=== PATIENT | female | born 1950 | race Hispanic/Latino ===

== ENCOUNTER → 2017-10-12 | Outpatient (CLI) | payer MEDICARE ==
--- NOTE | 2017-10-12 11:07 | Diagnostic Imaging Report ---
PROCEDURE:X-RAY RIGHT SHOULDER, COMPLETE COMPARISON:None. INDICATIONS:PAIN FINDINGS: 2 views of the right shoulder (AP internal and external rotation) BONES: Normal mineralization. No acute fracture or dislocation. Mild degenerative changes at the acromioclavicular joint. Internal and external rotation are adequate. SOFT TISSUES:Negative. OTHER:Negative. CONCLUSION: No acute radiographic abnormality of the right shoulder. Dictated by: Avelino Barber M.D. on 10/12/2017 at 11:16 Electronically approved by: Avelino Barber M.D. on 10/12/2017 at 11:16
== END ==
LOC: RAD 10:32
PROVIDERS: ATTEND Family Medicine
DX: M25.511 Pain in right shoulder (principal)

== ENCOUNTER → 2017-11-04 | Outpatient (RCR) | payer MEDICARE | LOC: PT 13:34 | PROVIDERS: ATTEND Specialist | DX: M75.41 Impingement syndrome of right shoulder (principal) | CPT/HCPCS: 97110; 97161; G8984; G8985 ==

== ENCOUNTER 2017-11-13 13:00 | Outpatient (RCR) | payer MEDICARE | END 2017-12-05 | LOC: PT 13:00 | PROVIDERS: ATTEND Specialist | DX: M75.41 Impingement syndrome of right shoulder (principal); M25.511 Pain in right shoulder; M25.611 Stiffness of right shoulder, not elsewhere classified; M62.81 Muscle weakness (generalized) ==

== ENCOUNTER 2018-11-08 09:26 | Inpatient (IN) | payer MEDICARE ==
[~2018-11-08] VITALS: Ht 165.1 cm; Wt 73.0 kg
--- OUTSIDE RECORDS SUMMARY | 2018-11-08 09:29 | XMS REPORT | Continuity of Care Document ---
Author Author [facility] Interface Address Unknown Phone Unavailable Problems Problem Status Onset Date Classification Date Reported Comments Source DIABETIC WITH LEG PAIN Active 06/01/2017 [facility] Medications Medication Details Route Status Patient Instructions Ordering Provider Order Date Source Allergies, Adverse Reactions, Alerts Substance Category Reaction Severity Reaction type Status Date Reported Comments Source Immunizations Immunization Date Given Site Status Last Updated Comments Source Results Order Name Results Value Reference Range Date Interpretation Comments Source Ext Lower Venous Doppler Bilat US Ext Lower Venous Doppler Bilat US Patient Name: SVETLANA MARTINEZ : 1950; Age: 66 years Female MR: [id number] Study: Ext Lower Venous Doppler Bilat US 06/09/2017 2:30 PM CDT CLINICAL INDICATION: - Bilateral leg Pain. Diabetes, COMPARISON: None TECHNIQUE: Sonographic evaluation of the bilateral lower extremity veins was performed using high resolution B-mode imaging, along with pulse and color Doppler imaging. FINDINGS: Right lower extremity: The common femoral vein, femoral vein, popliteal vein and visualized posterior tibial/calf veins are patent and compressible. The saphenofemoral junction and visualized greater saphenous vein are patent and compressible. Left lower extremity: The common femoral vein, superficial femoral vein, popliteal vein and visualized posterior tibial/calf veins are patent and compressible The saphenofemoral junction and visualized greater saphenous vein are patent and compressible. Anechoic 4.6 cm Goddard's cyst within the left popliteal fossa. IMPRESSION: No evidence of deep venous thrombosis within the bilateral lower extremities. SL: [id number] 06/09/2017 - - Read by: Joselin Polo MD Dictated Date/time: 06/09/17 15:47 Electronically Signed by: Joselin Polo MD 06/09/17 15:48 FINAL REPORT [facility] Ext Lower Arterial bilat w pressure US Ext Lower Arterial bilat w pressure US Please refer to heartlab report, located under Vascular in Care4. 06/09/2017 - - Electronically Signed by: Francisco Javier Renae 06/12/17 19:44 FINAL REPORT [facility] Breast Mammo Scrn MATT incl CAD MA Breast Mammo Scrn MATT incl CAD MA BILATERAL DIGITAL SCREENING MAMMOGRAM WITH CAD: 06/02/2017 CLINICAL: Routine/Screening. Current study was evaluated with a Computer Aided Detection (CAD) system. COMPARISON:No prior exams were available for comparison. TECHNIQUE: Mammographic views were obtained using digital acquisition. Current study was also evaluated with a Computer Aided Detection (CAD) system. The tissue of both breasts is heterogeneously dense, which could obscure detection of small masses. FINDINGS: There are benign calcifications in both breasts. No significant masses, calcifications, or other findings are seen in either breast. IMPRESSION: BENIGN RECOMMENDATION:There is no mammographic evidence of malignancy. A 1 year screening mammogram is recommended.(06/03/2018) This exam was interpreted at [id number] for JW Ordonez. Pat Flor M.D. ms/penrad:06/17/2017 10:10:26 Tourist Cabin Keeper(s): RT Bang(R)(M), [facility] letter sent: BI-RADS 1/2 Dense Mammogram BI-RADS: 2 Benign 06/02/2017 - - Read by: Pat Flor MD Dictated Date/time: 06/17/17 10:10 Electronically Signed by: Pat Flor MD 06/17/17 10:10 FINAL REPORT JW MAYOTri [facility] Bone Density [employer] MA Bone Density [employer] MA - Bone Density [employer] MA BONE DENSITY EVALUATION: 06/02/2017 CLINICAL DATA: Post menopausal. Screening for osteoporosis. RISK FACTORS: . FINDINGS: Bone density evaluation was performed 06/02/2017 on the AP L1-L4 region of spine using a Hologic unit. The BMD average for the exam is 0.875 g/cm2. The T-score is -1.60 and the Z-score is 0.20. This matches the World Health Organization's criteria for osteopenia and places the patient at a medium risk for fracture. An additional bone density evaluation was performed 06/02/2017 on the right femur neck using a Hologic unit. The BMD average for the exam is 0.570 g/cm2. The T-score is -2.50 and the Z-score is -1.10. This matches the World Health Organization's criteria for osteoporosis and places the patient at a high risk for fracture. An additional bone density evaluation was performed 06/02/2017 on the right hip using an [employer] unit. The BMD average for the exam is 0.696 g/cm2. The T-score is -2.00 and the Z-score is -0.80. This matches the World Health Organization's criteria for osteopenia and places the patient at a medium risk for fracture. An additional bone density evaluation was performed 06/02/2017 on the left femur neck using a Hologic unit. The BMD average for the exam is 0.545 g/cm2. The T- score is -2.70 and the Z-score is -1.30. This matches the World Health Organization's criteria for osteoporosis and places the patient at a high risk for fracture. An additional bone density evaluation was performed 06/02/2017 on the left hip using a Hologic unit. The BMD average for the exam is 0.698 g/cm2. The T-score is -2.00 and the Z-score is -0.80. This matches the World Health Organization's criteria for osteopenia and places the patient at a medium risk for fracture. IMPRESSION: OSTEOPOROSIS Patient is at high risk for fracture. Professional services are provided by the [facility]. This exam was dictated and interpreted by [id number] for JW Olvera M.D. cm/penrad:06/03/2017 08:23:19 Tourist Cabin Keeper: Ruth CASH(Nomi)(Marcial), [facility] 06/02/2017 - - Read by: David Colon MD Dictated Date/time: 06/03/17 08:23 Electronically Signed by: David Colon MD 06/03/17 08:23 FINAL REPORT JW Ordonez Vital Signs Vital Sign Value Date Comments Source Encounters Location Location Details Encounter Type Encounter Number Reason For Visit Attending Provider ADM Date DC Date Status Source [facility] [id number] Ayad Shah 06/02/2017 06/03/2017 JW Ordonez [facility] Outpatient [id number] Ayad Shah 06/09/2017 06/10/2017 [facility] Procedures Procedure Code Date Perfomer Comments Source
--- OUTSIDE RECORDS SUMMARY | 2018-11-08 09:29 | XMS REPORT | Summary of Care ---
Author Author [facility] Organization [facility] Address Unknown Phone Unavailable Encounter HQ Encntr_alias(FIN) [id number] Date(s): 06/02/17 - 06/02/17 [facility] [address] [place] [address]- [phone] Discharge Disposition: Home or Self Care Attending Physician: Ayad Shah MD Vital Signs No data available for this section Problem List No data available for this section Allergies, Adverse Reactions, Alerts No data available for this section Medications No data available for this section Results No data available for this section Immunizations No data available for this section Procedures No data available for this section Social History No data available for this section Assessment and Plan No data available for this section
--- OUTSIDE RECORDS SUMMARY | 2018-11-08 09:29 | XMS REPORT | Summary of Care ---
Author Author [facility] Organization [facility] Address Unknown Phone Unavailable Encounter HQ Encntr_alias(FIN) [id number] Date(s): 06/09/17 - 06/09/17 [facility] [address] [place] [address]- [phone] Discharge Disposition: Home or Self Care Attending Physician: Ayad Shah MD Referring Physician: Ayad Shah MD Vital Signs No [...]
--- OUTSIDE RECORDS SUMMARY | 2018-11-08 09:30 | XMS REPORT ---
Author [facility] Address Unknown Phone Unavailable Care Team Providers Care Machine Setter Automatic Name Role Phone GREER MCDERMOTT Unavailable Unavailable Payers Payer Name Policy Type Policy Number Effective Date Expiration Date Problems This patient has no known problems. Allergies, Adverse Reactions, Alerts Allergy Name Allergy Type Status Severity Reaction(s) Onset Date Inactive Date Treating Clinician Comments No Known Allergies DA Active U 2018-09-23 00:00:00 Medications This patient has no known medications. Results Test Description Test Time Test Comments Text Results Atomic Results Result Comments UA RFLX MICR CULT IF INDICATED 2018-10-12 17:08:00 UA COLOR (test code=COLU) STONEY YELLOW UA APPEARANCE (test code=APPU) TURBID CLEAR UA GLUCOSE DIPSTICK (test code=DGLUU) NEGATIVE NEG UA BILIRUBIN DIPSTICK (test code=BILU) NEGATIVE NEG UA KETONE DIPSTICK (test code=KETU) 1+ NEG UA SPECIFIC GRAVITY (test code=SGU) 1.014 1.001-1.035 UA BLOOD DIPSTICK (test code=SANTY) NEG NEG UA PH DIPSTICK (test code=ALTON) 5.0 5-9 UA PROTEIN DIPSTICK (test code=PROU) 2+ NEG UA UROBILINIOGEN DIPSTICK (test code=URO) NEGATIVE mg/dL NEG UA NITRITE DIPSTICK (test code=RAYMUNDO) NEG NEG UA LEUKOCYTE ESTERASE DIPSTICK (test code=LEUU) 3+ NEG UA WBC (test code=WBCU) TOO NUMEROUS TO CNT #/hpf NONE SEEN UA RBC (test code=RBCU) 0-2 #/hpf NONE SEEN UA EPITHELIAL CELLS (test code=EPIU) MODERATE #/HPF RARE-FEW UA BACTERIA (test code=BACU) MANY #/hpf NONE SEEN UA RFLX MICR CULT IF [id number] 16:49:00* Test Item Value Reference Range Comments UA COLOR (test code=COLU) STONEY YELLOW UA APPEARANCE (test code=APPU) TURBID CLEAR UA GLUCOSE DIPSTICK (test code=DGLUU) NEGATIVE NEG UA BILIRUBIN DIPSTICK (test code=BILU) NEGATIVE NEG UA KETONE DIPSTICK (test code=KETU) 1+ NEG UA SPECIFIC GRAVITY (test code=SGU) 1.014 1.001-1.035 UA BLOOD DIPSTICK (test code=SANTY) NEG NEG UA PH DIPSTICK (test code=ALTON) 5.0 5-9 UA PROTEIN DIPSTICK (test code=PROU) 2+ NEG UA UROBILINIOGEN DIPSTICK (test code=URO) NEGATIVE mg/dL NEG UA NITRITE DIPSTICK (test code=RAYMUNDO) NEG NEG UA LEUKOCYTE ESTERASE DIPSTICK (test code=LEUU) 3+ NEG UA WBC (test code=WBCU) #/hpf NONE SEEN UA RBC (test code=RBCU) #/hpf NONE SEEN UA EPITHELIAL CELLS (test code=EPIU) #/HPF RARE-FEW UA HYALINE CAST (test code=HYALU) #/hpf UA MUCUS (test code=MUCU) NONE SEEN UA YEAST (test code=YEASTU) #/hpf NONE SEEN COMPREHENSIVE METABOLIC [id number] 15:57:00* Test Item Value Reference Range Comments SODIUM (test code=NA) 136 mEq/L 135-145 POTASSIUM (test code=K) 3.3 mEq/L 3.5-5.0 CHLORIDE (test code=CL) 101 mEq/L 100-115 CARBON DIOXIDE (test code=CO2) 25 mEq/L 22-31 ANION GAP (test code=GAP) 13.30 10-20 GLUCOSE (test code=GLU) 186 mg/dL 65-110 BLOOD UREA NITROGEN (test code=BUN) 3 mg/dL 7-18 GLOMERULAR FILTRATION RATE (test code=GFR) 84 ml/min >60 CREATININE (test code=CREAT) 0.7 mg/dL 0.5-1.0 TOTAL PROTEIN (test code=PROT) 6.2 gm/dL 6.3-8.2 ALBUMIN (test code=ALB) 2.1 gm/dL 3.4-4.8 CALCIUM (test code=CA) 8.2 mg/dL 8.4-10.2 BILIRUBIN TOTAL (test code=BILT) 0.5 mg/dL 0.2-1.0 SGOT/AST (test code=AST) 90 units/L 15-37 SGPT/ALT (test code=ALT) 24 units/L 12-78 ALKALINE PHOSPHATASE TOTAL (test code=ALKP) 118 units/L 46-116 [id number] 15:57:00* Test Item Value Reference Range Comments LIPASE (test code=LIP) 46 units/L 73-393 CBC W/AUTO [id number] 15:23:00* Test Item Value Reference Range Comments WHITE BLOOD CELL (test code=WBC) 9.6 K/mm3 6.6-12.1 RED BLOOD CELL (test code=RBC) 4.72 M/mm3 3.45-5.01 HEMOGLOBIN (test code=HGB) 12.1 g/dL 10.7-13.9 HEMATOCRIT (test code=HCT) 39.6 % 32.1-42.1 MEAN CELL VOLUME (test code=MCV) 84 fL 84.1-94.8 MEAN CELL HGB (test code=MCH) 25.6 pg 27-35 MEAN CELL HGB CONCETRATION (test code=MCHC) 30.6 gm/dL 32.2-34.1 RED CELL DISTRIBUTION WIDTH (test code=RDW) 16.5 % 12.4-16.5 PLATELET COUNT (test code=PLT) 467 K/mm3 133-385 IMMATURE PLATELET FRACTION (test code=IPF) 0.0 % 0.0-10.8 MEAN PLATELET VOLUME (test code=MPV) 10.5 fl 9.1-12.7 NEUTROPHIL % (test code=NT%) 60.8 % 56.5-79.4 LYMPHOCYTE % (test code=LY%) 21.5 % 14.3-34.3 MONOCYTE % (test code=MO%) 11.5 % 5.1-10.4 EOSINOPHIL % (test code=EO%) 4.7 % 0.1-3.0 BASOPHIL % (test code=BA%) 1.1 % 0.1-1.0 NEUTROPHIL # (test code=NT#) 5.8 K/mm3 LYMPHOCYTE # (test code=LY#) 2.1 K/mm3 MONOCYTE # (test code=MO#) 1.1 K/mm3 EOSINOPHIL # (test code=EO#) 0.45 K/mm3 BASOPHIL # (test code=BA#) 0.1 K/mm3 RBC MORPHOLOGY REQUIRED (test code=RBCM) NORMAL NORMAL PLATELET MORPHOLOGY REQUIRED (test code=PLTMR) NORMAL NORMAL [id number] 07:52:00* Test Item Value Reference Range Comments GLUBED (test code=GLUBED) 180 mg/dL 74-106 [facility] [id number] 07:52:00* Test Item Value Reference Range Comments GLUBED (test code=GLUBED) 183 mg/dL 74-106 [facility] [id number] 07:52:00* Test Item Value Reference Range Comments GLUBED (test code=GLUBED) 192 mg/dL 74-106 Performed by certified coining press operator at [facility] [id number] 07:52:00* Test Item Value Reference Range Comments GLUBED (test code=GLUBED) 188 mg/dL 74-106 Performed by certified coining press operator at [facility] [id number] 07:52:00* Test Item Value Reference Range Comments GLUBED (test code=GLUBED) 177 mg/dL 74-106 Performed by certified coining press operator at [facility] [id number] 07:51:00* Test Item Value Reference Range Comments GLUBED (test code=GLUBED) 236 mg/dL 74-106 Performed by certified coining press operator at [facility] [id number] 07:51:00* Test Item Value Reference Range Comments GLUBED (test code=GLUBED) 321 mg/dL 74-106 Performed by certified coining press operator at [facility] [id number] 07:51:00* Test Item Value Reference Range Comments GLUBED (test code=GLUBED) 281 mg/dL 74-106 Performed by certified coining press operator at [facility] [id number] 16:49:00* Test Item Value Reference Range Comments GLUBED (test code=GLUBED) 273 mg/dL 74-106 Performed by certified coining press operator at [facility] [id number] 11:07:00* Test Item Value Reference Range Comments GLUBED (test code=GLUBED) 183 mg/dL 74-106 Performed by certified coining press operator at [facility] [id number] 05:46:00* Test Item Value Reference Range Comments GLUBED (test code=GLUBED) 196 mg/dL 74-106 Performed by certified coining press operator at [facility] [id number] 21:56:00* Test Item Value Reference Range Comments GLUBED (test code=GLUBED) 229 mg/dL 74-106 Performed by certified coining press operator at [facility] [id number] 19:23:00* Test Item Value Reference Range Comments GLUBED (test code=GLUBED) 228 mg/dL 74-106 Performed by certified coining press operator at [facility] [id number] 13:38:00* Test Item Value Reference Range Comments GLUBED (test code=GLUBED) 191 mg/dL 74-106 Performed by certified coining press operator at [facility] BASIC METABOLIC [id number] 06:16:00* Test Item Value Reference Range Comments SODIUM (test code=NA) 137 mmol/L 136-145 POTASSIUM (test code=K) 4.1 mmol/L 3.5-5.1 CHLORIDE (test code=CL) 103.0 mmol/L 98-107 CARBON DIOXIDE (test code=CO2) 26.0 mmol/L 21-32 ANION GAP (test code=GAP) 12.1 10-20 GLUCOSE (test code=GLU) 185 mg/dL 74-106 BLOOD UREA NITROGEN (test code=BUN) 3 mg/dL 7-18 GLOMERULAR FILTRATION RATE (test code=GFR) > 60 mL/min >=60 Estimated GFR by using Modified MDRD formula.Chronic kidney disease is defined as either kidney damageor GFR <60 mL/min/1.73 m2 for >3 months. CREATININE (test code=CREAT) 0.40 mg/dL 0.55-1.02 Note change in reference range due to change in reagent. BUN/CREATININE RATIO (test code=BUN/CREA) 8.2 10-20 CALCIUM (test code=CA) 8.3 mg/dL 8.5-10.1 [id number] 06:16:00* Test Item Value Reference Range Comments MAGNESIUM (test code=MAG) 1.4 mg/dL 1.8-2.4 BASIC METABOLIC [id number] 06:12:00* Test Item Value Reference Range Comments SODIUM (test code=NA) 137 mmol/L 136-145 POTASSIUM (test code=K) 4.1 mmol/L 3.5-5.1 CHLORIDE (test code=CL) 103.0 mmol/L 98-107 CARBON DIOXIDE (test code=CO2) mmol/L 21-32 ANION GAP (test code=GAP) 10-20 GLUCOSE (test code=GLU) mg/dL 74-106 BLOOD UREA NITROGEN (test code=BUN) mg/dL 7-18 GLOMERULAR FILTRATION RATE (test code=GFR) mL/min >=60 CREATININE (test code=CREAT) mg/dL 0.55-1.02 BUN/CREATININE RATIO (test code=BUN/CREA) 10-20 CALCIUM (test code=CA) mg/dL 8.5-10.1 [id number] 06:12:00* Test Item Value Reference Range Comments MAGNESIUM (test code=MAG) mg/dL 1.8-2.4 CBC W/AUTO [id number] 06:01:00* Test Item Value Reference Range Comments WHITE BLOOD CELL (test code=WBC) 5.7 K/mm3 4.5-12.5 RED BLOOD CELL (test code=RBC) 3.78 mill/mm3 3.7-5.2 HEMOGLOBIN (test code=HGB) 9.7 gram/dL 11.5-15.5 HEMATOCRIT (test code=HCT) 31.8 % 36.0-46.0 MEAN CELL VOLUME (test code=MCV) 84.1 fL 80-98 MEAN CELL HGB (test code=MCH) 25.7 picogram 27.0-33.0 MEAN CELL HGB CONCETRATION (test code=MCHC) 30.5 gram/dL 33.0-36.0 RED CELL DISTRIBUTION WIDTH (test code=RDW) 17.2 % 11.6-16.2 RED CELL DISTRIBUTION WIDTH SD (test code=RDW-SD) 52.9 fL 37.0-51.0 PLATELET COUNT (test code=PLT) 459 K/mm3 150-450 MEAN PLATELET VOLUME (test code=MPV) 10.0 fL 6.7-11.0 NEUTROPHIL % (test code=NT%) 45.8 % 39.0-69.0 IMMATURE GRANULOCYTE % (test code=IG%) 0.2 % 0.0-5.0 LYMPHOCYTE % (test code=LY%) 32.2 % 25.0-55.0 MONOCYTE % (test code=MO%) 12.3 % 0.0-10.0 EOSINOPHIL % (test code=EO%) 8.8 % 0.0-5.0 BASOPHIL % (test code=BA%) 0.7 % 0.0-1.0 NUCLEATED RBC % (test code=NRBC%) 0.0 % 0-0 NEUTROPHIL # (test code=NT#) 2.60 K/mm3 1.8-7.7 IMMATURE GRANULOCYTE # (test code=IG#) 0.01 x10 3/uL 0-0.03 LYMPHOCYTE # (test code=LY#) 1.83 K/mm3 1.0-5.0 MONOCYTE # (test code=MO#) 0.70 K/mm3 0-0.8 EOSINOPHIL # (test code=EO#) 0.50 K/mm3 0.0-0.5 BASOPHIL # (test code=BA#) 0.04 K/mm3 0.0-0.2 NUCLEATED RBC # (test code=NRBC#) 0.00 K/mm3 0.0-0.1 [id number] 15:59:00* Test Item Value Reference Range Comments GLUBED (test code=GLUBED) 85 mg/dL 74-106 Performed by certified coining press operator at [facility] [id number] 11:51:00* Test Item Value Reference Range Comments GLUBED (test code=GLUBED) 161 mg/dL 74-106 Performed by certified coining press operator at [facility] [id number] 07:00:00* Test Item Value Reference Range Comments GLUBED (test code=GLUBED) 171 mg/dL 74-106 [facility] coining press [facility]~ [id number] 21:07:00* Test Item Value Reference Range Comments GLUBED (test code=GLUBED) 155 mg/dL 74-106 Performed by certified coining press operator at [facility] [id number] 20:37:00* Test Item Value Reference Range Comments GLUBED (test code=GLUBED) 173 mg/dL 74-106 Performed by certified coining press operator at [facility] [id number] 12:56:00* Test Item Value Reference Range Comments GLUBED (test code=GLUBED) 160 mg/dL 74-106 Performed by certified coining press operator at [facility] [id number] 06:02:00* Test Item Value Reference Range Comments GLUBED (test code=GLUBED) 141 mg/dL 74-106 Performed by certified coining press operator at [facility] BASIC METABOLIC [id number] 05:31:00* Test Item Value Reference Range Comments SODIUM (test code=NA) 138 mmol/L 136-145 POTASSIUM (test code=K) 3.8 mmol/L 3.5-5.1 CHLORIDE (test code=CL) 101.0 mmol/L 98-107 CARBON DIOXIDE (test code=CO2) 29.0 mmol/L 21-32 ANION GAP (test code=GAP) 11.8 10-20 GLUCOSE (test code=GLU) 141 mg/dL 74-106 BLOOD UREA NITROGEN (test code=BUN) 1 mg/dL 7-18 GLOMERULAR FILTRATION RATE (test code=GFR) > 60 mL/min >=60 Estimated GFR by using Modified MDRD formula.Chronic kidney disease is defined as either kidney damageor GFR <60 mL/min/1.73 m2 for >3 months. CREATININE (test code=CREAT) 0.40 mg/dL 0.55-1.02 Note change in reference range due to change in reagent. BUN/CREATININE RATIO (test code=BUN/CREA) 2.4 10-20 CALCIUM (test code=CA) 8.1 mg/dL 8.5-10.1 BASIC METABOLIC [id number] 05:26:00* Test Item Value Reference Range Comments SODIUM (test code=NA) 138 mmol/L 136-145 POTASSIUM (test code=K) 3.8 mmol/L 3.5-5.1 CHLORIDE (test code=CL) 101.0 mmol/L 98-107 CARBON DIOXIDE (test code=CO2) mmol/L 21-32 ANION GAP (test code=GAP) 10-20 GLUCOSE (test code=GLU) mg/dL 74-106 BLOOD UREA NITROGEN (test code=BUN) mg/dL 7-18 GLOMERULAR FILTRATION RATE (test code=GFR) mL/min >=60 CREATININE (test code=CREAT) mg/dL 0.55-1.02 BUN/CREATININE RATIO (test code=BUN/CREA) 10-20 CALCIUM (test code=CA) mg/dL 8.5-10.1 [id number] 21:09:00* Test Item Value Reference Range Comments GLUBED (test code=GLUBED) 140 mg/dL 74-106 Performed by certified coining press operator at [facility] [id number] 19:08:00* Test Item Value Reference Range Comments GLUBED (test code=GLUBED) 250 mg/dL 74-106 Performed by certified coining press operator at [facility] [id number] 19:08:00* Test Item Value Reference Range Comments GLUBED (test code=GLUBED) 203 mg/dL 74-106 Performed by certified coining press operator at [facility] [id number] 08:34:00* Test Item Value Reference Range Comments GLUBED (test code=GLUBED) 197 mg/dL 74-106 Performed by certified coining press operator at [facility] BASIC METABOLIC [id number] 05:22:00* Test Item Value Reference Range Comments SODIUM (test code=NA) 136 mmol/L 136-145 POTASSIUM (test code=K) 3.0 mmol/L 3.5-5.1 CHLORIDE (test code=CL) 100.0 mmol/L 98-107 CARBON DIOXIDE (test code=CO2) 26.0 mmol/L 21-32 ANION GAP (test code=GAP) 13.0 10-20 GLUCOSE (test code=GLU) 196 mg/dL 74-106 BLOOD UREA NITROGEN (test code=BUN) 2 mg/dL 7-18 GLOMERULAR FILTRATION RATE (test code=GFR) > 60 mL/min >=60 Estimated GFR by using Modified MDRD formula.Chronic kidney disease is defined as either kidney damageor GFR <60 mL/min/1.73 m2 for >3 months. CREATININE (test code=CREAT) 0.50 mg/dL 0.55-1.02 Note change in reference range due to change in reagent. BUN/CREATININE RATIO (test code=BUN/CREA) 4.3 10-20 CALCIUM (test code=CA) 7.7 mg/dL 8.5-10.1 [id number] 05:22:00* Test Item Value Reference Range Comments MAGNESIUM (test code=MAG) 1.8 mg/dL 1.8-2.4 BASIC METABOLIC [id number] 05:17:00* Test Item Value Reference Range Comments SODIUM (test code=NA) 136 mmol/L 136-145 POTASSIUM (test code=K) 3.0 mmol/L 3.5-5.1 CHLORIDE (test code=CL) 100.0 mmol/L 98-107 CARBON DIOXIDE (test code=CO2) mmol/L 21-32 ANION GAP (test code=GAP) 10-20 GLUCOSE (test code=GLU) mg/dL 74-106 BLOOD UREA NITROGEN (test code=BUN) mg/dL 7-18 GLOMERULAR FILTRATION RATE (test code=GFR) mL/min >=60 CREATININE (test code=CREAT) mg/dL 0.55-1.02 BUN/CREATININE RATIO (test code=BUN/CREA) 10-20 CALCIUM (test code=CA) mg/dL 8.5-10.1 [id number] 05:17:00* Test Item Value Reference Range Comments MAGNESIUM (test code=MAG) mg/dL 1.8-2.4 [id number] 21:41:00* Test Item Value Reference Range Comments GLUBED (test code=GLUBED) 180 mg/dL 74-106 Performed by certified coining press operator at [facility] [id number] 16:33:00* Test Item Value Reference Range Comments GLUBED (test code=GLUBED) 189 mg/dL 74-106 Performed by certified coining press operator at [facility] [id number] 11:53:00* Test Item Value Reference Range Comments GLUBED (test code=GLUBED) 311 mg/dL 74-106 Performed by certified coining press operator at [facility] BASIC METABOLIC [id number] 06:26:00* Test Item Value Reference Range Comments SODIUM (test code=NA) 134 mmol/L 136-145 POTASSIUM (test code=K) 3.0 mmol/L 3.5-5.1 CHLORIDE (test code=CL) 98.0 mmol/L 98-107 CARBON DIOXIDE (test code=CO2) 26.0 mmol/L 21-32 ANION GAP (test code=GAP) 13.0 10-20 GLUCOSE (test code=GLU) 244 mg/dL 74-106 BLOOD UREA NITROGEN (test code=BUN) 2 mg/dL 7-18 GLOMERULAR FILTRATION RATE (test code=GFR) > 60 mL/min >=60 Estimated GFR by using Modified MDRD formula.Chronic kidney disease is defined as either kidney damageor GFR <60 mL/min/1.73 m2 for >3 months. CREATININE (test code=CREAT) 0.50 mg/dL 0.55-1.02 Note change in reference range due to change in reagent. BUN/CREATININE RATIO (test code=BUN/CREA) 4.2 10-20 CALCIUM (test code=CA) 8.1 mg/dL 8.5-10.1 [id number] 06:26:00* Test Item Value Reference Range Comments MAGNESIUM (test code=MAG) 1.5 mg/dL 1.8-2.4 CBC W/AUTO [id number] 06:22:00* Test Item Value Reference Range Comments WHITE BLOOD CELL (test code=WBC) 5.4 K/mm3 4.5-12.5 RED BLOOD CELL (test code=RBC) 3.65 mill/mm3 3.7-5.2 HEMOGLOBIN (test code=HGB) 9.5 gram/dL 11.5-15.5 HEMATOCRIT (test code=HCT) 29.8 % 36.0-46.0 MEAN CELL VOLUME (test code=MCV) 81.6 fL 80-98 MEAN CELL HGB (test code=MCH) 26.0 picogram 27.0-33.0 MEAN CELL HGB CONCETRATION (test code=MCHC) 31.9 gram/dL 33.0-36.0 RED CELL DISTRIBUTION WIDTH (test code=RDW) 16.3 % 11.6-16.2 RED CELL DISTRIBUTION WIDTH SD (test code=RDW-SD) 48.8 fL 37.0-51.0 PLATELET COUNT (test code=PLT) 338 K/mm3 150-450 MEAN PLATELET VOLUME (test code=MPV) 11.0 fL 6.7-11.0 NEUTROPHIL % (test code=NT%) 51.0 % 39.0-69.0 IMMATURE GRANULOCYTE % (test code=IG%) 0.6 % 0.0-5.0 LYMPHOCYTE % (test code=LY%) 25.9 % 25.0-55.0 MONOCYTE % (test code=MO%) 12.7 % 0.0-10.0 EOSINOPHIL % (test code=EO%) 8.9 % 0.0-5.0 BASOPHIL % (test code=BA%) 0.9 % 0.0-1.0 NUCLEATED RBC % (test code=NRBC%) 0.0 % 0-0 NEUTROPHIL # (test code=NT#) 2.74 K/mm3 1.8-7.7 IMMATURE GRANULOCYTE # (test code=IG#) 0.03 x10 3/uL 0-0.03 LYMPHOCYTE # (test code=LY#) 1.39 K/mm3 1.0-5.0 MONOCYTE # (test code=MO#) 0.68 K/mm3 0-0.8 EOSINOPHIL # (test code=EO#) 0.48 K/mm3 0.0-0.5 BASOPHIL # (test code=BA#) 0.05 K/mm3 0.0-0.2 NUCLEATED RBC # (test code=NRBC#) 0.00 K/mm3 0.0-0.1 MANUAL DIFF REQUIRED (test code=MDIFF) NO BASIC METABOLIC [id number] 06:15:00* Test Item Value Reference Range Comments SODIUM (test code=NA) 134 mmol/L 136-145 POTASSIUM (test code=K) 3.0 mmol/L 3.5-5.1 CHLORIDE (test code=CL) 98.0 mmol/L 98-107 CARBON DIOXIDE (test code=CO2) mmol/L 21-32 ANION GAP (test code=GAP) 10-20 GLUCOSE (test code=GLU) mg/dL 74-106 BLOOD UREA NITROGEN (test code=BUN) mg/dL 7-18 GLOMERULAR FILTRATION RATE (test code=GFR) mL/min >=60 CREATININE (test code=CREAT) mg/dL 0.55-1.02 BUN/CREATININE RATIO (test code=BUN/CREA) 10-20 CALCIUM (test code=CA) mg/dL 8.5-10.1 [id number] 06:15:00* Test Item Value Reference Range Comments MAGNESIUM (test code=MAG) mg/dL 1.8-2.4 [id number] 06:11:00* Test Item Value Reference Range Comments GLUBED (test code=GLUBED) 220 mg/dL 74-106 Performed by certified coining press operator at [facility] [id number] 16:15:00* Test Item Value Reference Range Comments GLUBED (test code=GLUBED) 215 mg/dL 74-106 Performed by certified coining press operator at [facility] [id number] 11:59:00* Test Item Value Reference Range Comments GLUBED (test code=GLUBED) 204 mg/dL 74-106 Performed by certified coining press operator at [facility] BASIC METABOLIC [id number] 07:07:00* Test Item Value Reference Range Comments SODIUM (test code=NA) 135 mmol/L 136-145 POTASSIUM (test code=K) 2.6 mmol/L 3.5-5.1 Results called to JONAH [id number] V.LAB.OA 09/29/18 [id number] results verified and read back by Nurse? Y CHLORIDE (test code=CL) 100.0 mmol/L 98-107 CARBON DIOXIDE (test code=CO2) 25.0 mmol/L 21-32 ANION GAP (test code=GAP) 12.6 10-20 GLUCOSE (test code=GLU) 196 mg/dL 74-106 BLOOD UREA NITROGEN (test code=BUN) 2 mg/dL 7-18 GLOMERULAR FILTRATION RATE (test code=GFR) > 60 mL/min >=60 Estimated GFR by using Modified MDRD formula.Chronic kidney disease is defined as either kidney damageor GFR <60 mL/min/1.73 m2 for >3 months. CREATININE (test code=CREAT) 0.50 mg/dL 0.55-1.02 Note change in reference range due to change in reagent. BUN/CREATININE RATIO (test code=BUN/CREA) 4.1 10-20 CALCIUM (test code=CA) 8.1 mg/dL 8.5-10.1 HEPATIC FUNCTION [id number] 07:07:00* Test Item Value Reference Range Comments TOTAL PROTEIN (test code=PROT) 5.8 gram/dL 6.4-8.2 ALBUMIN (test code=ALB) 1.9 g/dL 3.4-5.0 GLOBULIN (test code=GLOB) 3.9 gram/dL 2.7-4.2 ALBUMIN/GLOBULIN RATIO (test code=A/G) 0.5 0.75-1.50 BILIRUBIN TOTAL (test code=BILT) 0.60 mg/dL 0.0-1.0 BILIRUBIN DIRECT (test code=BILD) 0.35 mg/dL 0.0-0.20 SGOT/AST (test code=AST) 33 IUnit/L 15-37 SGPT/ALT (test code=ALT) 54 IUnit/L 12-78 ALKALINE PHOSPHATASE TOTAL (test code=ALKP) 213 IUnit/L 45-117 Note change in reference range due to change in reagent. [id number] 07:07:00* Test Item Value Reference Range Comments MAGNESIUM (test code=MAG) 1.4 mg/dL 1.8-2.4 CBC W/AUTO [id number] 06:38:00* Test Item Value Reference Range Comments WHITE BLOOD CELL (test code=WBC) 6.3 K/mm3 4.5-12.5 RED BLOOD CELL (test code=RBC) 3.73 mill/mm3 3.7-5.2 HEMOGLOBIN (test code=HGB) 9.4 gram/dL 11.5-15.5 HEMATOCRIT (test code=HCT) 30.8 % 36.0-46.0 MEAN CELL VOLUME (test code=MCV) 82.6 fL 80-98 MEAN CELL HGB (test code=MCH) 25.2 picogram 27.0-33.0 MEAN CELL HGB CONCETRATION (test code=MCHC) 30.5 gram/dL 33.0-36.0 RED CELL DISTRIBUTION WIDTH (test code=RDW) 16.1 % 11.6-16.2 RED CELL DISTRIBUTION WIDTH SD (test code=RDW-SD) 48.1 fL 37.0-51.0 PLATELET COUNT (test code=PLT) 357 K/mm3 150-450 RESULT VERIFIED BY REPEAT ANALYSIS MEAN PLATELET VOLUME (test code=MPV) 10.7 fL 6.7-11.0 NEUTROPHIL % (test code=NT%) 55.5 % 39.0-69.0 IMMATURE GRANULOCYTE % (test code=IG%) 0.9 % 0.0-5.0 LYMPHOCYTE % (test code=LY%) 22.7 % 25.0-55.0 MONOCYTE % (test code=MO%) 11.5 % 0.0-10.0 EOSINOPHIL % (test code=EO%) 8.8 % 0.0-5.0 BASOPHIL % (test code=BA%) 0.6 % 0.0-1.0 NUCLEATED RBC % (test code=NRBC%) 0.0 % 0-0 NEUTROPHIL # (test code=NT#) 3.50 K/mm3 1.8-7.7 IMMATURE GRANULOCYTE # (test code=IG#) 0.06 x10 3/uL 0-0.03 LYMPHOCYTE # (test code=LY#) 1.44 K/mm3 1.0-5.0 MONOCYTE # (test code=MO#) 0.73 K/mm3 0-0.8 EOSINOPHIL # (test code=EO#) 0.56 K/mm3 0.0-0.5 BASOPHIL # (test code=BA#) 0.04 K/mm3 0.0-0.2 NUCLEATED RBC # (test code=NRBC#) 0.00 K/mm3 0.0-0.1 MANUAL DIFF REQUIRED (test code=MDIFF) NO [id number] 16:52:00* Test Item Value Reference Range Comments GLUBED (test code=GLUBED) 268 mg/dL 74-106 Performed by certified coining press operator at [facility] [id number] 12:14:00* Test Item Value Reference Range Comments GLUBED (test code=GLUBED) 260 mg/dL 74-106 Performed by certified coining press operator at [facility] [place] [id number] 07:27:00* Test Item Value Reference Range Comments CA 125 (test iknl=FK514) 25.6 U/mL 0.0-38.1 [facility] Electrochemiluminescence Immunoassay(ECLIA)Values obtained with different assay methods or kits cannotbe used interchangeably. Results cannot be interpreted asabsolute evidence of the presence or absence of malignantdisease.Performed At: [address] [place], [place] [id number] Fabio Valenzuela MD Ph:[phone] [id number] 06:43:00* Test Item Value Reference Range Comments GLUBED (test code=GLUBED) 214 mg/dL 74-106 Performed by certified coining press operator at [facility] - CT HEAD/BRAIN W/O [id number] 22:41:00 Name: SVETLANA MARTINEZ [facility] : 1950 Age/S: 67 / F [address] [facility] Unit #: [id number] Loc: [place] [address] Phys: Letty Ellison MD Acct: [id number] Dis Date: Status: ADM IN PHONE #: [phone] Exam Date: 09/27/20182228 FAX #: [phone] Reason: lethargy EXAMS: CPT CODE: [id number] CT HEAD/BRAIN W/O CONT 54066 EXAM: CT of the head without contrast; INFORMATION: Lethargy; TECHNIQUE AND FINDINGS: CT dose reduction protocol; 2.5 mm axial scans. There is no evidence of intra or extra-axial hemorrhage, mass lesions or midline shift. Mild periventricular hypodensities; otherwise, unremarkable dolan/white matter differentiation. Ventricles are symmetric and of normal diameter; sulci and basilar cisterns are intact. The calvarium is intact. Extensive mucosal swelling within the right maxillary, the ethmoid, sphenoid and frontal sinuses; only the left maxillary sinuses normally aerated. Well aerated mastoid air cells. IMPRESSION: 1. No evidence of intracranial hemorrhage or acute territorial i nfarction. 2. Mild chronic ischemic white matter changes. 3. E xtensive sinusitis. at 2241 Reported and signed by: Carrington Peñaloza M.D. CC: Letty Ellison MD; Bertha Awad Technologist:Sarah Olsen RT(R) CTDI: DLP: Trnscb Date/Time: 09/27/2018 (2240) priya ANDREW Orig Print D/T: S: 09/27/2018 (4882) CTDI: DLP: PAGE 1 Signed Report [id number] 21:22:00* Test Item Value Reference Range Comments GLUBED (test code=GLUBED) 318 mg/dL 74-106 Performed by certified coining press operator at [facility] [id number] 15:18:00* Test Item Value Reference Range Comments GLUBED (test code=GLUBED) 249 mg/dL 74-106 Performed by certified coining press operator at [facility] [id number] 08:56:00* Test Item Value Reference Range Comments GLUBED (test code=GLUBED) 247 mg/dL 74-106 Performed by certified coining press operator at [facility] COMPREHENSIVE METABOLIC [id number] 07:23:00* Test Item Value Reference Range Comments SODIUM (test code=NA) 132 mmol/L 136-145 POTASSIUM (test code=K) 3.4 mmol/L 3.5-5.1 CHLORIDE (test code=CL) 99.0 mmol/L 98-107 CARBON DIOXIDE (test code=CO2) 19.0 mmol/L 21-32 ANION GAP (test code=GAP) 17.4 10-20 GLUCOSE (test code=GLU) 208 mg/dL 74-106 BLOOD UREA NITROGEN (test code=BUN) 3 mg/dL 7-18 GLOMERULAR FILTRATION RATE (test code=GFR) > 60 mL/min >=60 Estimated GFR by using Modified MDRD formula.Chronic kidney disease is defined as either kidney damageor GFR <60 mL/min/1.73 m2 for >3 months. CREATININE (test code=CREAT) 0.60 mg/dL 0.55-1.02 Note change in reference range due to change in reagent. BUN/CREATININE RATIO (test code=BUN/CREA) 5.3 10-20 TOTAL PROTEIN (test code=PROT) 6.1 gram/dL 6.4-8.2 ALBUMIN (test code=ALB) 2.1 g/dL 3.4-5.0 GLOBULIN (test code=GLOB) 4.0 gram/dL 2.7-4.2 ALBUMIN/GLOBULIN RATIO (test code=A/G) 0.5 0.75-1.50 CALCIUM (test code=CA) 8.7 mg/dL 8.5-10.1 BILIRUBIN TOTAL (test code=BILT) 1.30 mg/dL 0.0-1.0 SGOT/AST (test code=AST) 20 IUnit/L 15-37 SGPT/ALT (test code=ALT) 85 IUnit/L 12-78 ALKALINE PHOSPHATASE TOTAL (test code=ALKP) 238 IUnit/L 45-117 Note change in reference range due to change in reagent. [id number] 07:23:00* Test Item Value Reference Range Comments MAGNESIUM (test code=MAG) 1.4 mg/dL 1.8-2.4 COMPREHENSIVE METABOLIC [id number] 07:00:00* Test Item Value Reference Range Comments SODIUM (test code=NA) 132 mmol/L 136-145 POTASSIUM (test code=K) 3.4 mmol/L 3.5-5.1 CHLORIDE (test code=CL) 99.0 mmol/L 98-107 CARBON DIOXIDE (test code=CO2) mmol/L 21-32 ANION GAP (test code=GAP) 10-20 GLUCOSE (test code=GLU) mg/dL 74-106 BLOOD UREA NITROGEN (test code=BUN) mg/dL 7-18 GLOMERULAR FILTRATION RATE (test code=GFR) mL/min >=60 CREATININE (test code=CREAT) mg/dL 0.55-1.02 BUN/CREATININE RATIO (test code=BUN/CREA) 10-20 TOTAL PROTEIN (test code=PROT) gram/dL 6.4-8.2 ALBUMIN (test code=ALB) g/dL 3.4-5.0 GLOBULIN (test code=GLOB) gram/dL 2.7-4.2 ALBUMIN/GLOBULIN RATIO (test code=A/G) 0.75-1.50 CALCIUM (test code=CA) mg/dL 8.5-10.1 BILIRUBIN TOTAL (test code=BILT) mg/dL 0.0-1.0 SGOT/AST (test code=AST) IUnit/L 15-37 SGPT/ALT (test code=ALT) IUnit/L 12-78 ALKALINE PHOSPHATASE TOTAL (test code=ALKP) IUnit/L 45-117 [id number] 07:00:00* Test Item Value Reference Range Comments MAGNESIUM (test code=MAG) mg/dL 1.8-2.4 CBC W/O [id number] 06:25:00* Test Item Value Reference Range Comments WHITE BLOOD CELL (test code=WBC) 7.6 K/mm3 4.5-12.5 RED BLOOD CELL (test code=RBC) 3.66 mill/mm3 3.7-5.2 HEMOGLOBIN (test code=HGB) 9.6 gram/dL 11.5-15.5 HEMATOCRIT (test code=HCT) 30.4 % 36.0-46.0 MEAN CELL VOLUME (test code=MCV) 83.1 fL 80-98 MEAN CELL HGB (test code=MCH) 26.2 picogram 27.0-33.0 MEAN CELL HGB CONCETRATION (test code=MCHC) 31.6 gram/dL 33.0-36.0 RED CELL DISTRIBUTION WIDTH (test code=RDW) 15.9 % 11.6-16.2 PLATELET COUNT (test code=PLT) 290 K/mm3 150-450 MEAN PLATELET VOLUME (test code=MPV) 10.7 fL 6.7-11.0 [id number] 21:02:00* Test Item Value Reference Range Comments GLUBED (test code=GLUBED) 231 mg/dL 74-106 Performed by certified coining press operator at [facility] [id number] 17:17:00* Test Item Value Reference Range Comments GLUBED (test code=GLUBED) 277 mg/dL 74-106 Performed by certified coining press operator at [facility] [id number] 12:38:00* Test Item Value Reference Range Comments GLUBED (test code=GLUBED) 240 mg/dL 74-106 Performed by certified coining press operator at [facility] [id number] 21:01:00* Test Item Value Reference Range Comments GLUBED (test code=GLUBED) 249 mg/dL 74-106 Performed by certified coining press operator at [facility] [id number] 16:50:00* Test Item Value Reference Range Comments GLUBED (test code=GLUBED) 233 mg/dL 74-106 Performed by certified coining press operator at [facility] [id number] 12:23:00* Test Item Value Reference Range Comments GLUBED (test code=GLUBED) 233 mg/dL 74-106 Performed by certified coining press operator at [facility] [id number] 06:19:00* Test Item Value Reference Range Comments GLUBED (test code=GLUBED) 254 mg/dL 74-106 Performed by certified coining press operator at [facility] [id number] 06:19:00* Test Item Value Reference Range Comments GLUBED (test code=GLUBED) 201 mg/dL 74-106 Performed by certified coining press operator at [facility] COMPREHENSIVE METABOLIC [id number] 06:07:00* Test Item Value Reference Range Comments SODIUM (test code=NA) 131 mmol/L 136-145 POTASSIUM (test code=K) 4.0 mmol/L 3.5-5.1 CHLORIDE (test code=CL) 98.0 mmol/L 98-107 CARBON DIOXIDE (test code=CO2) 18.0 mmol/L 21-32 ANION GAP (test code=GAP) 19.0 10-20 GLUCOSE (test code=GLU) 266 mg/dL 74-106 BLOOD UREA NITROGEN (test code=BUN) 4 mg/dL 7-18 GLOMERULAR FILTRATION RATE (test code=GFR) > 60 mL/min >=60 Estimated GFR by using Modified MDRD formula.Chronic kidney disease is defined as either kidney damageor GFR <60 mL/min/1.73 m2 for >3 months. CREATININE (test code=CREAT) 0.80 mg/dL 0.55-1.02 Note change in reference range due to change in reagent. BUN/CREATININE RATIO (test code=BUN/CREA) 4.9 10-20 TOTAL PROTEIN (test code=PROT) 6.1 gram/dL 6.4-8.2 ALBUMIN (test code=ALB) 2.2 g/dL 3.4-5.0 GLOBULIN (test code=GLOB) 3.9 gram/dL 2.7-4.2 ALBUMIN/GLOBULIN RATIO (test code=A/G) 0.6 0.75-1.50 CALCIUM (test code=CA) 9.0 mg/dL 8.5-10.1 BILIRUBIN TOTAL (test code=BILT) 1.70 mg/dL 0.0-1.0 SGOT/AST (test code=AST) 24 IUnit/L 15-37 SGPT/ALT (test code=ALT) 155 IUnit/L 12-78 ALKALINE PHOSPHATASE TOTAL (test code=ALKP) 309 IUnit/L 45-117 Note change in reference range due to change in reagent. [id number] 06:07:00* Test Item Value Reference Range Comments MAGNESIUM (test code=MAG) 1.3 mg/dL 1.8-2.4 COMPREHENSIVE METABOLIC [id number] 05:58:00* Test Item Value Reference Range Comments SODIUM (test code=NA) 131 mmol/L 136-145 POTASSIUM (test code=K) 4.0 mmol/L 3.5-5.1 CHLORIDE (test code=CL) 98.0 mmol/L 98-107 CARBON DIOXIDE (test code=CO2) mmol/L 21-32 ANION GAP (test code=GAP) 10-20 GLUCOSE (test code=GLU) mg/dL 74-106 BLOOD UREA NITROGEN (test code=BUN) mg/dL 7-18 GLOMERULAR FILTRATION RATE (test code=GFR) mL/min >=60 CREATININE (test code=CREAT) mg/dL 0.55-1.02 BUN/CREATININE RATIO (test code=BUN/CREA) 10-20 TOTAL PROTEIN (test code=PROT) gram/dL 6.4-8.2 ALBUMIN (test code=ALB) g/dL 3.4-5.0 GLOBULIN (test code=GLOB) gram/dL 2.7-4.2 ALBUMIN/GLOBULIN RATIO (test code=A/G) 0.75-1.50 CALCIUM (test code=CA) mg/dL 8.5-10.1 BILIRUBIN TOTAL (test code=BILT) mg/dL 0.0-1.0 SGOT/AST (test code=AST) IUnit/L 15-37 SGPT/ALT (test code=ALT) IUnit/L 12-78 ALKALINE PHOSPHATASE TOTAL (test code=ALKP) IUnit/L 45-117 [id number] 05:58:00* Test Item Value Reference Range Comments MAGNESIUM (test code=MAG) mg/dL 1.8-2.4 T3 [id number] 05:18:00* Test Item Value Reference Range Comments T3 FREE (test code=T3F) 3.2 pg/mL 2.0-4.4 Performed At: [facility] [id number] Kyle L MD Ph:[phone] - CT CHEST W/[id number] 04:06:00 Name: SVETLANA MARTINEZ [facility] : 1950 Age/S: 67 / F Josh Flores Unit #: [id number] Loc: MELISSA [place] [address] Phys: Valentin Hammonds MD Acct: [id number] Dis Date: Status: ADM IN PHONE #: [phone] Exam Date: 09/25/2018 0336 FAX #: [phone] Reason: lung nodule, adnexal masses EXAMS: CPT CODE: [id number] CT CHEST W/CONTRAST 37455 HISTORY: Lung nodule TECHNIQUE: Axial tomograms through the chest were obtained after intravenous contrast. One or more of the following dose reduction techniques were used: Automated exposure control, adjustment of the mA and/or kV according to patient size, and/or utilization of iterative reconstruction technique. Comparison to prior CT abdomen dated 09/23/2018 FINDINGS: Patchy areas of groundglass opacity demonstrated within the upper lobes bilaterally. Groundglass nodular opacity is demonstrated in the right lower lobe as well as anterior right middle lobe. No dominant solid nodule demonstrated. Small pericardial effusion is present. Coronary calcifications are present. Aortic calcifications are present. No significant mediastinal mass or adenopathy. Low-density bilateral adrenal lesions are noted as seen on prior CT examination. IMPRESSION: 1. Patchy groundglass opacity in both lung apices as well as areas of nodular groundglass opacity in the right lower lobe and right middle lobe as well as medial left lower lobe. Findings suggest multifocal pneumonitis. Consider 3-6 month follow-up. 2. Low attenuation bilateral adrenal lesions again noted. at 0406 Reported and signed by: Ziggy Chauhan MD CC: Letty Ellison MD; Valentin Hammonds MD; Bertha Awad Technologist:RT Bridget(R)(CT) CTDI: DLP: Trnscb Date/Time: 09/25/2018 (0406) [email or web address] Orig Print D/T: S: 09/27/2018 (1432) CTDI: DLP: PAGE 1 Signed Report [id number] 16:32:00* Test Item Value Reference Range Comments GLUBED (test code=GLUBED) 243 mg/dL 74-106 Performed by certified coining press operator at [facility] ACUTE HEPATITIS [id number] 11:23:00* Test Item Value Reference Range Comments AB HEPATITIS A IGM (test code=HAVMAB) Negative Negative AG HEPAT B SURF (test code=HBSAG) Negative Negative HEPATITIS B CORE ANTIBODY,IGM (test code=HBCMAB) Negative Negative AB HEPATITIS C (test code=HCVAB) <0.1 0.0-0.9 INFCE Result Units: s/co ratio Negative: < 0.8 Indeterminate: 0.8 - 0.9 Positive: > 0.9 The CDC recommends that a positive HCV antibody result be followed up with a HCV Nucleic Acid Amplification test (418309).Performed At: [facility] [address] [id number] Fabio Valenzuela MD Ph:[phone] [id number] 10:52:00* Test Item Value Reference Range Comments GLUBED (test code=GLUBED) 245 mg/dL 74-106 Performed by certified coining press operator at [facility] [id number] 10:51:00* Test Item Value Reference Range Comments GLUBED (test code=GLUBED) 248 mg/dL 74-106 Performed by certified coining press operator at [facility] - XR CHEST 1 [id number] 09:45:00 FAX: Letty Ellison MD [place]: B St: [facility] FAX: Bertha Gudino [phone] Name: SVETLANA MARTINEZ [facility] : 1950 Age/S: 67/F [address] [facility] Unit #: [id number] Loc: V.[address] [place] [address] Phys: Letyt Ellison MD Acct: [id number] Dis Date: Status: ADM IN PHONE #: [phone] Exam Date: 09/24/2018 08 FAX #: [phone] Reason: rule out pulm edema/pna EXAMS: CPT CODE: [id number] XR CHEST 1 V 35022 HISTORY: Pulmonary edema evaluation versus pneumonia. COMPARISON: Previous day. No acute infiltrates, effusion or congestion is noted. Azygos lobe. Mild cardiomegaly. IMPRESSION: No acute infiltrates, effusion or congestion. at 0945 Reported and signed by: Clinton Rucker M.D. CC: Letty Ellison MD; Bertha Awad Technologist: RT GABRIEL(Nomi); STUDENT TECHNOLOGIST Trnscrd Date/Time/By: 09/24/2018 (0945) : By: [email or web address] Orig Print D/T: S: 09/24/2018 (0949) PAGE 1 Signed Report PROCALCITONIN (PCT)2018-09-24 07:16:00* Test Item Value Reference Range Comments PROCALCITONIN (PCT) (test code=PROCAL) 0.24 ng/ml Concentration Interpretation (ng/mL) <0.51 Sepsis is not likely. Local bacterial infection is possible. (LOW RISK for progression to Sepsis) 0.51 - 2.00 Sepsis is possible, but other conditions are known to elevate PCT as well. (MODERATE RISK for progression to Sepsis) > 2.00 Sepsis is likely, unless other causes are known. (HIGH RISK for progression to Severe Sepsis or Septic Shock) 10.00 High likelihood of Severe Sepsis or Septic or higher Shock. *Increased PCT levels may not always be related to systemic bacterial infection.*Low PCT levels do not automatically exclude the presence of bacterial infection.*All results should be interpreted taking into account the patients history. T4 [id number] 04:03:00* Test Item Value Reference Range Comments T4 FREE (test code=T4F) 1.64 ng/dL 0.76-1.46 BASIC METABOLIC [id number] 04:01:00* Test Item Value Reference Range Comments SODIUM (test code=NA) 136 mmol/L 136-145 RESULT VERIFIED BY REPEAT ANALYSIS POTASSIUM (test code=K) 3.9 mmol/L 3.5-5.1 CHLORIDE (test code=CL) 103.0 mmol/L 98-107 CARBON DIOXIDE (test code=CO2) 17.0 mmol/L 21-32 ANION GAP (test code=GAP) 19.9 10-20 GLUCOSE (test code=GLU) 249 mg/dL 74-106 BLOOD UREA NITROGEN (test code=BUN) 6 mg/dL 7-18 RESULT VERIFIED BY REPEAT ANALYSIS GLOMERULAR FILTRATION RATE (test code=GFR) > 60 mL/min >=60 Estimated GFR by using Modified MDRD formula.Chronic kidney disease is defined as either kidney damageor GFR <60 mL/min/1.73 m2 for >3 months. CREATININE (test code=CREAT) 0.60 mg/dL 0.55-1.02 Note change in reference range due to change in reagent. BUN/CREATININE RATIO (test code=BUN/CREA) 10.0 10-20 CALCIUM (test code=CA) 8.1 mg/dL 8.5-10.1 HEPATIC FUNCTION [id number] 04:01:00* Test Item Value Reference Range Comments TOTAL PROTEIN (test code=PROT) 5.7 gram/dL 6.4-8.2 ALBUMIN (test code=ALB) 2.0 g/dL 3.4-5.0 GLOBULIN (test code=GLOB) 3.7 gram/dL 2.7-4.2 ALBUMIN/GLOBULIN RATIO (test code=A/G) 0.5 0.75-1.50 BILIRUBIN TOTAL (test code=BILT) 1.60 mg/dL 0.0-1.0 BILIRUBIN DIRECT (test code=BILD) 0.89 mg/dL 0.0-0.20 SGOT/AST (test code=AST) 33 IUnit/L 15-37 SGPT/ALT (test code=ALT) 209 IUnit/L 12-78 ALKALINE PHOSPHATASE TOTAL (test code=ALKP) 346 IUnit/L 45-117 Note change in reference range due to change in reagent. CBC W/AUTO [id number] 03:30:00* Test Item Value Reference Range Comments WHITE BLOOD CELL (test code=WBC) 9.9 K/mm3 4.5-12.5 RED BLOOD CELL (test code=RBC) 3.62 mill/mm3 3.7-5.2 HEMOGLOBIN (test code=HGB) 9.3 gram/dL 11.5-15.5 RESULT VERIFIED BY REPEAT ANALYSIS HEMATOCRIT (test code=HCT) 32.9 % 36.0-46.0 MEAN CELL VOLUME (test code=MCV) 88.7 fL 80-98 MEAN CELL HGB (test code=MCH) 25.7 picogram 27.0-33.0 MEAN CELL HGB CONCETRATION (test code=MCHC) 28.3 gram/dL 33.0-36.0 RED CELL DISTRIBUTION WIDTH (test code=RDW) 16.3 % 11.6-16.2 RED CELL DISTRIBUTION WIDTH SD (test code=RDW-SD) 53.3 fL 37.0-51.0 PLATELET COUNT (test code=PLT) 230 K/mm3 150-450 RESULT VERIFIED BY REPEAT ANALYSIS MEAN PLATELET VOLUME (test code=MPV) 11.2 fL 6.7-11.0 NEUTROPHIL % (test code=NT%) 67.8 % 39.0-69.0 IMMATURE GRANULOCYTE % (test code=IG%) 0.7 % 0.0-5.0 LYMPHOCYTE % (test code=LY%) 12.7 % 25.0-55.0 MONOCYTE % (test code=MO%) 12.5 % 0.0-10.0 EOSINOPHIL % (test code=EO%) 5.9 % 0.0-5.0 BASOPHIL % (test code=BA%) 0.4 % 0.0-1.0 NUCLEATED RBC % (test code=NRBC%) 0.0 % 0-0 NEUTROPHIL # (test code=NT#) 6.74 K/mm3 1.8-7.7 IMMATURE GRANULOCYTE # (test code=IG#) 0.07 x10 3/uL 0-0.03 LYMPHOCYTE # (test code=LY#) 1.26 K/mm3 1.0-5.0 MONOCYTE # (test code=MO#) 1.24 K/mm3 0-0.8 EOSINOPHIL # (test code=EO#) 0.59 K/mm3 0.0-0.5 BASOPHIL # (test code=BA#) 0.04 K/mm3 0.0-0.2 NUCLEATED RBC # (test code=NRBC#) 0.00 K/mm3 0.0-0.1 MANUAL DIFF REQUIRED (test code=MDIFF) NO, ONLY SCAN NEEDED DIFFERENTIAL [id number] 03:30:00* Test Item Value Reference Range Comments STAIN ACCEPTABILITY (test code=STN ACCEPTABLE) STAIN ACCEPTABLE POIKILOCYTOSIS (test code=POIK) 1+ PLATELET ESTIMATE (test code=PLTEST) ADEQUATE PLATELET MORPHOLOGY (test code=PLTMORPH) NORMAL T4 (THYROXINE)2018-09-24 03:28:00* Test Item Value Reference Range Comments T4 (THYROXINE) (test code=T4) 10.2 ug/dL 4.5-13.9 CBC W/AUTO [id number] 03:21:00* Test Item Value Reference Range Comments WHITE BLOOD CELL (test code=WBC) 9.9 K/mm3 4.5-12.5 RED BLOOD CELL (test code=RBC) 3.62 mill/mm3 3.7-5.2 HEMOGLOBIN (test code=HGB) 9.3 gram/dL 11.5-15.5 RESULT VERIFIED BY REPEAT ANALYSIS HEMATOCRIT (test code=HCT) 32.9 % 36.0-46.0 MEAN CELL VOLUME (test code=MCV) 88.7 fL 80-98 MEAN CELL HGB (test code=MCH) 25.7 picogram 27.0-33.0 MEAN CELL HGB CONCETRATION (test code=MCHC) 28.3 gram/dL 33.0-36.0 RED CELL DISTRIBUTION WIDTH (test code=RDW) 16.3 % 11.6-16.2 RED CELL DISTRIBUTION WIDTH SD (test code=RDW-SD) 53.3 fL 37.0-51.0 PLATELET COUNT (test code=PLT) 230 K/mm3 150-450 RESULT VERIFIED BY REPEAT ANALYSIS MEAN PLATELET VOLUME (test code=MPV) 11.2 fL 6.7-11.0 NEUTROPHIL % (test code=NT%) 67.8 % 39.0-69.0 IMMATURE GRANULOCYTE % (test code=IG%) 0.7 % 0.0-5.0 LYMPHOCYTE % (test code=LY%) 12.7 % 25.0-55.0 MONOCYTE % (test code=MO%) 12.5 % 0.0-10.0 EOSINOPHIL % (test code=EO%) 5.9 % 0.0-5.0 BASOPHIL % (test code=BA%) 0.4 % 0.0-1.0 NUCLEATED RBC % (test code=NRBC%) 0.0 % 0-0 NEUTROPHIL # (test code=NT#) 6.74 K/mm3 1.8-7.7 IMMATURE GRANULOCYTE # (test code=IG#) 0.07 x10 3/uL 0-0.03 LYMPHOCYTE # (test code=LY#) 1.26 K/mm3 1.0-5.0 MONOCYTE # (test code=MO#) 1.24 K/mm3 0-0.8 EOSINOPHIL # (test code=EO#) 0.59 K/mm3 0.0-0.5 BASOPHIL # (test code=BA#) 0.04 K/mm3 0.0-0.2 NUCLEATED RBC # (test code=NRBC#) 0.00 K/mm3 0.0-0.1 MANUAL DIFF REQUIRED (test code=MDIFF) NO, ONLY SCAN NEEDED DIFFERENTIAL [id number] 03:21:00* Test Item Value Reference Range Comments STAIN ACCEPTABILITY (test code=STN ACCEPTABLE) CABOT RINGS (test code=CAB) MORPHOLOGY COMMENT (test code=MOC) PLATELET ESTIMATE (test code=PLTEST) PLATELET MORPHOLOGY (test code=PLTMORPH) CBC W/AUTO [id number] 03:21:00* Test Item Value Reference Range Comments WHITE BLOOD CELL (test code=WBC) 9.9 K/mm3 4.5-12.5 RED BLOOD CELL (test code=RBC) 3.62 mill/mm3 3.7-5.2 HEMOGLOBIN (test code=HGB) 9.3 gram/dL 11.5-15.5 RESULT VERIFIED BY REPEAT ANALYSIS HEMATOCRIT (test code=HCT) 32.9 % 36.0-46.0 MEAN CELL VOLUME (test code=MCV) 88.7 fL 80-98 MEAN CELL HGB (test code=MCH) 25.7 picogram 27.0-33.0 MEAN CELL HGB CONCETRATION (test code=MCHC) 28.3 gram/dL 33.0-36.0 RED CELL DISTRIBUTION WIDTH (test code=RDW) 16.3 % 11.6-16.2 RED CELL DISTRIBUTION WIDTH SD (test code=RDW-SD) 53.3 fL 37.0-51.0 PLATELET COUNT (test code=PLT) 230 K/mm3 150-450 RESULT VERIFIED BY REPEAT ANALYSIS MEAN PLATELET VOLUME (test code=MPV) 11.2 fL 6.7-11.0 NEUTROPHIL % (test code=NT%) 67.8 % 39.0-69.0 IMMATURE GRANULOCYTE % (test code=IG%) 0.7 % 0.0-5.0 LYMPHOCYTE % (test code=LY%) 12.7 % 25.0-55.0 MONOCYTE % (test code=MO%) 12.5 % 0.0-10.0 EOSINOPHIL % (test code=EO%) 5.9 % 0.0-5.0 BASOPHIL % (test code=BA%) 0.4 % 0.0-1.0 NUCLEATED RBC % (test code=NRBC%) 0.0 % 0-0 NEUTROPHIL # (test code=NT#) 6.74 K/mm3 1.8-7.7 IMMATURE GRANULOCYTE # (test code=IG#) 0.07 x10 3/uL 0-0.03 LYMPHOCYTE # (test code=LY#) 1.26 K/mm3 1.0-5.0 MONOCYTE # (test code=MO#) 1.24 K/mm3 0-0.8 EOSINOPHIL # (test code=EO#) 0.59 K/mm3 0.0-0.5 BASOPHIL # (test code=BA#) 0.04 K/mm3 0.0-0.2 NUCLEATED RBC # (test code=NRBC#) 0.00 K/mm3 0.0-0.1 MANUAL DIFF REQUIRED (test code=MDIFF) NO, ONLY SCAN NEEDED DIFFERENTIAL [id number] 03:21:00* Test Item Value Reference Range Comments STAIN ACCEPTABILITY (test code=STN ACCEPTABLE) CABOT RINGS (test code=CAB) MORPHOLOGY COMMENT (test code=MOC) PLATELET ESTIMATE (test code=PLTEST) PLATELET MORPHOLOGY (test code=PLTMORPH) CBC W/AUTO [id number] 03:21:00* Test Item Value Reference Range Comments WHITE BLOOD CELL (test code=WBC) 9.9 K/mm3 4.5-12.5 RED BLOOD CELL (test code=RBC) 3.62 mill/mm3 3.7-5.2 HEMOGLOBIN (test code=HGB) 9.3 gram/dL 11.5-15.5 RESULT VERIFIED BY REPEAT ANALYSIS HEMATOCRIT (test code=HCT) 32.9 % 36.0-46.0 MEAN CELL VOLUME (test code=MCV) 88.7 fL 80-98 MEAN CELL HGB (test code=MCH) 25.7 picogram 27.0-33.0 MEAN CELL HGB CONCETRATION (test code=MCHC) 28.3 gram/dL 33.0-36.0 RED CELL DISTRIBUTION WIDTH (test code=RDW) 16.3 % 11.6-16.2 RED CELL DISTRIBUTION WIDTH SD (test code=RDW-SD) 53.3 fL 37.0-51.0 PLATELET COUNT (test code=PLT) 230 K/mm3 150-450 RESULT VERIFIED BY REPEAT ANALYSIS MEAN PLATELET VOLUME (test code=MPV) 11.2 fL 6.7-11.0 NEUTROPHIL % (test code=NT%) 67.8 % 39.0-69.0 IMMATURE GRANULOCYTE % (test code=IG%) 0.7 % 0.0-5.0 LYMPHOCYTE % (test code=LY%) 12.7 % 25.0-55.0 MONOCYTE % (test code=MO%) 12.5 % 0.0-10.0 EOSINOPHIL % (test code=EO%) 5.9 % 0.0-5.0 BASOPHIL % (test code=BA%) 0.4 % 0.0-1.0 NUCLEATED RBC % (test code=NRBC%) 0.0 % 0-0 NEUTROPHIL # (test code=NT#) 6.74 K/mm3 1.8-7.7 IMMATURE GRANULOCYTE # (test code=IG#) 0.07 x10 3/uL 0-0.03 LYMPHOCYTE # (test code=LY#) 1.26 K/mm3 1.0-5.0 MONOCYTE # (test code=MO#) 1.24 K/mm3 0-0.8 EOSINOPHIL # (test code=EO#) 0.59 K/mm3 0.0-0.5 BASOPHIL # (test code=BA#) 0.04 K/mm3 0.0-0.2 NUCLEATED RBC # (test code=NRBC#) 0.00 K/mm3 0.0-0.1 MANUAL DIFF REQUIRED (test code=MDIFF) NO, ONLY SCAN NEEDED DIFFERENTIAL [id number] 03:21:00* Test Item Value Reference Range Comments STAIN ACCEPTABILITY (test code=STN ACCEPTABLE) MORPHOLOGY COMMENT (test code=MOC) PLATELET ESTIMATE (test code=PLTEST) PLATELET MORPHOLOGY (test code=PLTMORPH) CBC W/AUTO [id number] 03:21:00* Test Item Value Reference Range Comments WHITE BLOOD CELL (test code=WBC) 9.9 K/mm3 4.5-12.5 RED BLOOD CELL (test code=RBC) 3.62 mill/mm3 3.7-5.2 HEMOGLOBIN (test code=HGB) 9.3 gram/dL 11.5-15.5 RESULT VERIFIED BY REPEAT ANALYSIS HEMATOCRIT (test code=HCT) 32.9 % 36.0-46.0 MEAN CELL VOLUME (test code=MCV) 88.7 fL 80-98 MEAN CELL HGB (test code=MCH) 25.7 picogram 27.0-33.0 MEAN CELL HGB CONCETRATION (test code=MCHC) 28.3 gram/dL 33.0-36.0 RED CELL DISTRIBUTION WIDTH (test code=RDW) 16.3 % 11.6-16.2 RED CELL DISTRIBUTION WIDTH SD (test code=RDW-SD) 53.3 fL 37.0-51.0 PLATELET COUNT (test code=PLT) 230 K/mm3 150-450 RESULT VERIFIED BY REPEAT ANALYSIS MEAN PLATELET VOLUME (test code=MPV) 11.2 fL 6.7-11.0 NEUTROPHIL % (test code=NT%) 67.8 % 39.0-69.0 IMMATURE GRANULOCYTE % (test code=IG%) 0.7 % 0.0-5.0 LYMPHOCYTE % (test code=LY%) 12.7 % 25.0-55.0 MONOCYTE % (test code=MO%) 12.5 % 0.0-10.0 EOSINOPHIL % (test code=EO%) 5.9 % 0.0-5.0 BASOPHIL % (test code=BA%) 0.4 % 0.0-1.0 NUCLEATED RBC % (test code=NRBC%) 0.0 % 0-0 NEUTROPHIL # (test code=NT#) 6.74 K/mm3 1.8-7.7 IMMATURE GRANULOCYTE # (test code=IG#) 0.07 x10 3/uL 0-0.03 LYMPHOCYTE # (test code=LY#) 1.26 K/mm3 1.0-5.0 MONOCYTE # (test code=MO#) 1.24 K/mm3 0-0.8 EOSINOPHIL # (test code=EO#) 0.59 K/mm3 0.0-0.5 BASOPHIL # (test code=BA#) 0.04 K/mm3 0.0-0.2 NUCLEATED RBC # (test code=NRBC#) 0.00 K/mm3 0.0-0.1 MANUAL DIFF REQUIRED (test code=MDIFF) NO, ONLY SCAN NEEDED DIFFERENTIAL [id number] 03:21:00* Test Item Value Reference Range Comments STAIN ACCEPTABILITY (test code=STN ACCEPTABLE) CABOT RINGS (test code=CAB) MORPHOLOGY COMMENT (test code=MOC) PLATELET ESTIMATE (test code=PLTEST) PLATELET MORPHOLOGY (test code=PLTMORPH) [id number] 21:17:00* Test Item Value Reference Range Comments GLUBED (test code=GLUBED) 294 mg/dL 74-106 Performed by certified coining press operator at [facility] GAMMA GLUTAMYL [id number] 18:45:00* Test Item Value Reference Range Comments GAMMA GLUTAMYL TRANSPEPTIDASE (test code=GGT) 750 Unit/L 5-55 THYROID STIMULATING [id number] 18:43:00* Test Item Value Reference Range Comments THYROID STIMULATING HORMONE (test code=TSH) 0.571 uIU/mL 0.36-3.74 TSH REFERENCE RANGES: EUTHYROID: 0.35 - 4.3 mIU/mL HYPO : > 5.5 mIU/mL HYPER : < 0.35 mIU/mL [id number] 18:38:00* Test Item Value Reference Range Comments ACETAMINOPHEN (test code=ACET) < 10 mcg/mL 10-30 A RANGE OF 10-30 mcg/mL IS A THERAPEUTIC RANGE. TOXIC CONCENTRATIONS: >150 mcg/mL AT 4 HOURS AFTER INGESTION >=50 mcg/mL AT 12 HOURS AFTER INGESTION [id number] 18:38:00* Test Item Value Reference Range Comments AMMONIA (test code=AMM) 18 umol/L 11-32 PROTHROMBIN [id number] 18:16:00* Test Item Value Reference Range Comments PROTHROMBIN TIME PATIENT (test code=PTP) 13.5 seconds 9.0-14.0 INTERNATIONAL NORMAL RATIO (test code=INR) 1.1 0.8-1.2 The therapeutic range for oral anticoagulant therapy formost indications is an international normalized ratio (INR)of between 2.0 and 3.0. The recommended therapeutic INRrange for various clinical situations is listed below: Clinical Situation INR range Pulmonary e mbolism treatment (2.0-3.0)Venous thrombosis treatmentVenous thrombosis prophylaxis (high risk surgery)Prevention of systemic embolism from: Acute myocardial infarction Valvular heart disease Atrial fibrillation Mechanical prosthetic heart valves (2.5-3.5) IS PATIENT ON ANTICOAGULANTS? [id number] 17:26:00* Test Item Value Reference Range Comments GLUBED (test code=GLUBED) 253 mg/dL 74-106 Performed by certified coining press operator at [facility] - [place] PELVIS [id number] 13:41:00 Name: SVETLANA MARTINEZ [facility] : 1950 Age/S: 67 / F [address] Unit #: [id number] Loc: [place] [address] Phys: Letty Ellison MD Acct: [id number] Dis Date: Status: ADM IN PHONE #: [phone] Exam Date: 09/23/2018 1310 FAX #: [phone] Reason: cystic pelvic lesion on ct EXAMS: CPT CODE: [id number] PELVIS COMPLETE [id number] HISTORY: Cystic pelvic lesion. COMPARISON: CT scan from same day. Transabdominal pelvic ultrasound: The uterus is anteverted and measuring 9.8 x 6.8 x 4.1 cm. Endometrial is normal visible on this exam. Heterogeneous echogenicity and texture. Visualized cervix is normal. Large multi septated complex right adnexal region containing fat consistent with teratoma/dermoid. This is measuring 11.9 x 8.7 x 11.6 cm. Color and Doppler flow is noted. Complex cystic multiloculated mass in the left adnexa measuring 1.2 x 9.5 x 9.5 cm. This is indeterminate and malignancy cannot be excluded. Color Doppler flow is noted. Gynecological evaluation. No free fluid. 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 Complex cystic lesion is multiloculated in the left adnexal region measuring 9.5 cm and malignancy cannot be excluded. Gynecological evaluation. Heterogeneous uterus with nonvisualization of the endometrium. No free fluid. at 1341 Reported and signed by: Clinton Rucker M.D. CC: Letty Ellison MD; Bertha Awad; Virginia Jiménez MD Technologist: ESME OSEGUERA RT(R),[facility] Date/Time: 0 09/23/2018 (9231) [email or web address] Orig Print D/T: S: 09/23/2018 (6039) Probe: PAGE 1 Signed Rep ort SHOULDER RIGHT COMPLETE [place] [address] Patient Name: SVETLANA MARTINEZ MR #: [id number] : 1950 Age/Sex: 66/F Req #: [id number] Adm Physician: Ordered by: SHARRON PERSAUD, GREER Delaney MD Report #: [id number] Location: [facility] Room/Bed: Procedure: [id number] DX/SHOULDER RIGHT COMPLE TE Exam Date: 10/12/17 Exam Time: 1050 REPORT STATUS: Signed PROCEDURE: X-RAY RIGHT SHOULDER, COMPLETE COMPARISON: None. INDICATIONS: PAIN FINDINGS: 2 views of the right shou lder (AP internal and external rotation) BONES: Normal mineralization. No acute fracture or dislocation. Mild degenerative changes at the acromioclavic ular joint. Internal and external rotation are adequate. SOFT TISSUES: Negative. OTHER: Negative. CONCLUSION: No acute radiogr aphic abnormality of the right shoulder. Dictated by: Candido Barber M.D. on 10/12/2017 at 11:16 Electronically approved by: Candido Barber M.D. on 10/12/2017 at 11:16 Dictated By: CANDIDO BARBER MD 1116 Transcribed By: FABIANA on 10/12/17 1116 COPY TO: GREER MCDERMOTT
[2018-11-08] MEDS ORDERED: PANTOPRAZOLE 40 MG 10ML VIAL IV STA (09:47)
[2018-11-08] MEDS ORDERED: SODIUM CHLORIDE 0.9% 1000ML 1,000 ML IV STA ×2 (09:47→12:55)
--- NOTE | 2018-11-08 10:50 | Diagnostic Imaging Report ---
EXAMINATION: PA and lateral views of the chest with supine and upright abdominal radiographs. COMPARISON: None CLINICAL HISTORY: Nausea, vomiting, abdominal pain, hypotension DISCUSSION: Chest: The lungs are well-inflated and without focal consolidation, pleural effusion, or pneumothorax. Probable azygos fissure right upper lobe. No free air under the diaphragm. Cardiomediastinal contour and pulmonary vasculature are within normal limits. No osseous destructive lesions. Abdomen: The bowel gas pattern shows no dilated, air-filled loops of bowel. Large amount of fecal material is noted within the descending colon and rectum. No mass effect or organomegaly. Jus Tulip IVC filter spans the L1 and L2 levels. Status post total left hip replacement with partially visualized surgical hardware. Transitional lumbosacral anatomy with a left pseudoarthrosis between L5 and S1. IMPRESSION: No acute cardiopulmonary abnormality. Nonobstructive bowel gas pattern. Large amount of fecal material within the descending colon and rectum may indicate constipation in the appropriate clinical setting. Signed by: Dr. Miguel Joiner M.D. on 11/08/2018 10:47 AM
[2018-11-08 11:45] LABS: ALBUMIN/GLOBULIN RATIO 0.7 (0.8-2.0); ANION GAP 16.5 mmol/L (8-16); CALCIUM 11.7 mg/dL (8.4-10.2); MAGNESIUM 1.3 MG/DL (1.3-2.1); POTASSIUM 4.5 mmol/L (3.5-5.1)
[2018-11-08 11:53] LABS: CREATINE KINASE MB 0.3 ng/mL (0-5.0)
[2018-11-08 12:15] LABS: BASOPHILS # (AUTO) 0.1 (0.0-0.1); BASOPHILS % 0.8 % (0.0-1.0); EOSINOPHILS # (AUTO) 0.8 (0.0-0.4); EOSINOPHILS % 8.6 % (0.0-6.0); HEMATOCRIT 41.6 % (34.2-44.1); HEMOGLOBIN 13.3 g/dL (12.0-16.0); LYMPHOCYTES # (AUTO) 2.1 (1.0-3.2); LYMPHOCYTES % 23.3 % (18.0-39.1); MEAN CORPUSCULAR HEMOGLOBIN 25.6 pg (28-32); MEAN CORPUSCULAR VOLUME 80.2 fL (81-99); MONOCYTES # (AUTO) 1.1 (0.2-0.8); MONOCYTES % 12.3 % (4.4-11.3); NEUTROPHILS % 54.9 % (38.7-80.0); PLATELET COUNT 314 x10e3/uL (140-360); RED BLOOD COUNT 5.19 x10e6/uL (3.6-5.1); RED CELL DISTRIBUTION WIDTH 17.7 % (11.7-14.4)
[2018-11-08 12:20] LABS: INR 1.05; PROTHROMBIN TIME 14.2 seconds (11.9-14.5)
[2018-11-08] MEDS ORDERED: ONDANSETRON HCL INJ 2MG/ML 2ML 2 MG/ML VIAL IV STA (12:55)
--- NOTE | 2018-11-08 14:00 | NUR ---
PATIENT ASSISTED TO RESTROOM, WHILE IN RESTROOM PATIENT BECAME DIZZY. FAMILY REPORTS HE ASSISTED TO FLOOR. NO C/O PAIN, NO OBVIOUS SIGNS OF INJURY. ER MD MADE AWARE OF EVENT.
[2018-11-08] MEDS ORDERED: DEXTROSE 50% SYRINGE 50 ML IV PRN (14:30)
[2018-11-08] MEDS ORDERED: PROMETHAZINE 12.5MG/ NACL 0.9% 12.5 MG/50 ML BAG IV PRN (14:30)
[2018-11-08 14:45] LABS: BILIRUBIN,URINE NEGATIVE (NEGATIVE); CLARITY,URINE SL CLOUDY (CLEAR); COLOR,URINE YELLOW (YELLOW); KETONES,URINE 1+ (NEGATIVE); LEUKOCYTE ESTERASE ,URINE NEGATIVE (NEGATIVE); NITRITE,URINE NEGATIVE (NEGATIVE); PROTEIN,URINE DIPSTICK NEGATIVE (NEGATIVE); URINE UROBILINOGEN 0.2 mg/dL (0.2 - 1)
[2018-11-08] MEDS ORDERED: PROMETHAZINE 12.5MG/ NACL 0.9% 50 ML IV PRN (14:45)
[2018-11-08] MEDS ORDERED: METFORMIN HCL1000 MG PO (14:50)
[2018-11-08] MEDS ORDERED: LOSARTAN POTASS50 MG PO (14:50)
[2018-11-08] MEDS ORDERED: LEVEMIR (14:50)
[2018-11-08] MEDS ORDERED: PREDNISONE10 MG PO (14:50)
[2018-11-08] MEDS ORDERED: ATORVASTATIN CA20 MG PO (14:50)
[2018-11-08] MEDS ORDERED: METOPROLOL TAR100 MG PO (14:50)
[2018-11-08 15:18] VITALS: BP 112/54
--- NOTE | 2018-11-08 15:34 | Diagnostic Imaging Report ---
Exam: Head CT without contrast History: Dizziness, near syncope Comparison studies: None Technique: Axial images were obtained from the skull base to the vertex. Coronal and sagittal images reconstructed from the axial data. Dose modulation, iterative reconstruction, and/or weight based adjustment of the mA/kV was utilized to reduce the radiation dose to as low as reasonably achievable. Radiation dose: Total DLP: ... mGy*cm. Estimated effective dose: DLP x 0.015 Intravenous contrast: None Findings: Scalp: No abnormalities. Bones: No fractures, blastic or lytic lesions. Brain sulci: Appropriate for age. Ventricles: Normal in size and configuration. No hydrocephalus. Extra-axial spaces: No masses, no fluid collection. Parenchyma: No mass, acute hemorrhage or acute or chronic cortical vascular insults. A few subtle hypodensities in the supratentorial white matter are nonspecific but most compatible with chronic small vessel ischemic changes. Sellar/suprasellar region: No abnormalities. Craniocervical junction: Patent foramen magnum. No Chiari one malformation. Incidental findings: Atherosclerotic calcifications in the carotid siphons. Small amount facet frothy secretions in the sphenoid sinuses bilaterally. IMPRESSION: 1. No acute intracranial abnormalities. 2. Mild chronic microvascular ischemic changes. Signed by: Dr. Miguel Vigil M.D. on 11/08/2018 3:30 PM
[2018-11-08 16:16] VITALS: BP 112/54
--- NOTE | 2018-11-08 16:16 | NUR ---
Patient arrived on unit via stretcher. Patient alert and oriented and in no distress. Call aburto within reach and bed in lowest position.
[2018-11-08] MEDS: SODIUM CHLORIDE 0.9% 1000ML 1,000 ML IV SCH ×2 (16:20→21:01)
[2018-11-08] MEDS: INSULIN LISPRO 100 UNIT/1 ML 3ML VIAL SQ SCH ×2 (16:30→20:58)
[2018-11-08 16:46] VITALS: BP 112/54
--- NOTE | 2018-11-08 19:19 | NUR ---
rounded with shift stacker nurse, patient aware of change and in no distress. Call aburto within reach and bed in lowest position
[2018-11-08 20:10] VITALS: BP 112/53
[2018-11-08 21:34] LABS: CREATINE KINASE MB 0.3 ng/mL (0-5.0)
[2018-11-09] VITALS (9 sets, daily range): BP systolic 112–148; BP diastolic 53–65
[2018-11-09] MEDS: SODIUM CHLORIDE 0.9% 1000ML 1,000 ML IV SCH (02:28)
[2018-11-09 05:46] LABS: BASOPHILS # (AUTO) 0.1 (0.0-0.1); BASOPHILS % 0.7 % (0.0-1.0); EOSINOPHILS # (AUTO) 0.8 (0.0-0.4); EOSINOPHILS % 11.8 % (0.0-6.0); HEMATOCRIT 32.2 % (34.2-44.1); LYMPHOCYTES % 30.2 % (18.0-39.1); MEAN CORPUSCULAR HEMOGLOBIN 25.5 pg (28-32); MEAN CORPUSCULAR HGB CONC 31.1 g/dL (31-35); MEAN CORPUSCULAR VOLUME 82.1 fL (81-99); MONOCYTES # (AUTO) 0.9 (0.2-0.8); NEUTROPHILS # (AUTO) 2.9 (2.1-6.9); PLATELET COUNT 290 x10e3/uL (140-360); RED BLOOD COUNT 3.92 x10e6/uL (3.6-5.1); RED CELL DISTRIBUTION WIDTH 17.8 % (11.7-14.4)
[2018-11-09 06:17] LABS: ALANINE AMINOTRANSFERASE 9 IU/L (0-55); ALBUMIN 2.2 g/dL (3.5-5.0); ALBUMIN/GLOBULIN RATIO 0.7 (0.8-2.0); ALKALINE PHOSPHATASE 78 IU/L (40-150); ANION GAP 16.6 mmol/L (8-16); BLOOD UREA NITROGEN 12 mg/dL (7-26); BUN/CREATININE RATIO 16 (6-25); CALCIUM 9.3 mg/dL (8.4-10.2); CARBON DIOXIDE 16 mmol/L (22-29); CHLORIDE 101 mmol/L (98-107); CREATININE, SERUM 0.74 mg/dL (0.57-1.11); EST GLOMERULAR FILTRATION RATE > 60 ML/MIN (60-); GLUCOSE 122 mg/dL (74-118); POTASSIUM 4.6 mmol/L (3.5-5.1); SODIUM 129 mmol/L (136-145)
--- NOTE | 2018-11-09 07:25 | NUR ---
Walking rounds done. Patient is resting in bed in NAD. POC discussed in Polish. Patient instructed to call for assistance as needed and verbalized understanding. Call aburto within reach.
[2018-11-09] MEDS: INSULIN LISPRO 100 UNIT/1 ML 3ML VIAL SQ SCH ×4 (07:30→20:21)
--- NOTE | 2018-11-09 09:00 | NUR ---
Dr. Ellison making rounds, updated on condition and notified of HR of 120. Per Dr. Ellison he will review.
[2018-11-09] MEDS ORDERED: LACTULOSE SYRUP 20 GM/30 ML UDC PO ONE (09:15)
--- NOTE | 2018-11-09 11:58 | NUR ---
Patient is scheduled for gastric emptying study tomorrow AM, 11/10/18, needs to be NPO and nausea medications given prior to testing per JAX Hogue.
[2018-11-09] MEDS: METOPROLOL TARTRATE 50 MG TAB PO SCH ×2 (12:08→17:17)
[2018-11-09 13:51] LABS: CREATINE KINASE MB 0.3 ng/mL (0-5.0)
--- NOTE | 2018-11-09 17:19 | NUR ---
Nutrition Screen Note RD Recommendation for Physician: -Continue ADA diet as ordered -Pt refused oral nutrition supplements -RD discussed menu options with pt and family Plan of Care: RD following, monitoring for tolerance and adequacy Nutrition reason for involvement: Nutrition Risk Trigger MST Primary Diagnose(s): dehydration, dizziness, hypercalcemia PMH: DM Ht: 63in Wt: 163.19lb BMI: 28.9kg/m2 IBW: 115lb RD Assessment: (11/09) Chart reviewed. Labs and meds reviewed. Visited pt in the room. 68yo F, who was admitted for dehydration. Acute abdomen series indicated constipation. Visited pt in the room. Pt reported having nausea and vomiting for over a month. No abdominal pain noted. Unknown weight loss hx. No complain of chewing or swallowing difficulty reported. LBM 2 to 3 days ago. Pt only ate ~25% for lunch today. Appetite has been poor since admission. RD offered ONS but pt was not interested. Discussed available menu options with pt. Pt stated not wanting to eat because of nausea. Zofran has been ordered. Will continue to monitor and follow. Current Diet: ADA diet Malnutrition Evaluation (11/09) The patient does not meet criteria for a specified degree of malnutrition at this time. Will re-evaluate at follow-up as appropriate. Diet Education Needs Assessment: Diet education not indicated. Nutrition Care Level: low Signed: Morenita Cabezas, MS, RD, LD
--- NOTE | 2018-11-09 18:30 | NUR ---
Patient instructed on Mag citrate x1 in [place] and verbalized understanding.
[2018-11-09] MEDS ORDERED: CITRATE OF MAGNESIA 300ML BOTTLE PO ONE (18:45)
[2018-11-10] VITALS (7 sets, daily range): BP systolic 115–137; BP diastolic 58–78
[2018-11-10 05:45] LABS: BASOPHILS # (AUTO) 0.1 (0.0-0.1); BASOPHILS % 0.9 % (0.0-1.0); EOSINOPHILS # (AUTO) 0.7 (0.0-0.4); EOSINOPHILS % 13.2 % (0.0-6.0); HEMATOCRIT 30.1 % (34.2-44.1); HEMOGLOBIN 9.6 g/dL (12.0-16.0); LYMPHOCYTES # (AUTO) 1.7 (1.0-3.2); LYMPHOCYTES % 31.3 % (18.0-39.1); MEAN CORPUSCULAR HEMOGLOBIN 25.6 pg (28-32); MEAN CORPUSCULAR HGB CONC 31.9 g/dL (31-35); MEAN CORPUSCULAR VOLUME 80.3 fL (81-99); MONOCYTES # (AUTO) 0.7 (0.2-0.8); MONOCYTES % 13.4 % (4.4-11.3); NEUTROPHILS # (AUTO) 2.3 (2.1-6.9); PLATELET COUNT 290 x10e3/uL (140-360); RED BLOOD COUNT 3.75 x10e6/uL (3.6-5.1); RED CELL DISTRIBUTION WIDTH 17.5 % (11.7-14.4)
[2018-11-10 06:10] LABS: ALANINE AMINOTRANSFERASE 14 IU/L (0-55); ALBUMIN 2.1 g/dL (3.5-5.0); ALKALINE PHOSPHATASE 93 IU/L (40-150); BILIRUBIN,DIRECT 0.3 mg/dL (0.0-0.5); BLOOD UREA NITROGEN 7 mg/dL (7-26); BUN/CREATININE RATIO 11 (6-25); CALCIUM 9.5 mg/dL (8.4-10.2); CARBON DIOXIDE 16 mmol/L (22-29); CHLORIDE 107 mmol/L (98-107); CREATININE, SERUM 0.62 mg/dL (0.57-1.11); EST GLOMERULAR FILTRATION RATE > 60 ML/MIN (60-); GLUCOSE 165 mg/dL (74-118); MAGNESIUM 1.2 MG/DL (1.3-2.1); SODIUM 131 mmol/L (136-145)
[2018-11-10 06:31] LABS: THYROID STIMULATING HORMONE 1.169 uIU/mL (0.350-4.940)
[2018-11-10] MEDS: INSULIN LISPRO 100 UNIT/1 ML 3ML VIAL SQ SCH ×4 (07:30→21:00)
--- NOTE | 2018-11-10 07:42 | NUR ---
patient resting in bed, Alert with no distress, call light in reach on NPO.
[2018-11-10] MEDS: METOPROLOL TARTRATE 50 MG TAB PO SCH ×2 (08:23→17:40)
[2018-11-10] MEDS: ONDANSETRON HCL INJ 2MG/ML 2ML 2 MG/ML VIAL IV PRN (10:31)
--- NOTE | 2018-11-10 11:44 | NUR ---
DC PLANNING: SPOKE W BEDSIDE NURSE; ELOINA GEE TODAY. STATES PT IS HAVING GASTRIC EMPTYING STUDY TODAY. PT STILL HAS NAUSEA AND EMESIS X1. DISCUSSED PT'S RECOMMENDATION FOR SNF. NURSE WILL ASK FOR SNF ORDER IF APPROPRIATE PER MD.
[2018-11-10] MEDS ORDERED: MAGNESIUM SULFATE 2GM/50ML 50 ML IV ONE (14:15)
--- NOTE | 2018-11-10 14:56 | NUR ---
patient back from procedure from nuclear medicine, stable, family at bed side
--- NOTE | 2018-11-10 15:30 | NUR ---
GOT CHOICE SIGNED FOR [facility] FILED CHOICE IN CHART AND FAXED CLINICALS TO [phone]
--- NOTE | 2018-11-10 15:47 | Diagnostic Imaging Report ---
Solid-phase gastric emptying study Reason for examination: Severe nausea abd vomiting The protocol used for this study is based on the Consensus Recommendations for Gastric Scintigraphy by the [place] [employer] Society and the Society of Nuclear Medicine. Clinical information: The patient is not diabetic; blood sugar today is 144 mg/dL. The patient has not had prior gastrointestinal surgery. The patient is not on any medications expected to affect gastric motility. The patient has been fasting for at least 6 hours prior to this exam. Radiopharmaceutical: Tc-99m sulfur colloid 1 mCi Report: The radiopharmaceutical was to 30 mL of Ensure. On two previous attempts to do the study, the patient vomited after taking the full 8 ounces of Ensure. After the patient had taken the 30 mL of Ensure with the tracer added, she said that she could not take any more of it but she did not vomit the 30 mL that she did take. Images were obtained of the abdomen in the anterior and posterior projections at 10 minutes post the meal and at 1, 2, 3, and 4 hours. Uptake was determined from the geometric mean of the anterior and posterior counts and the counts were corrected for decay of the radiolabel. The percent gastric retention of the labeled meal at: 1 hour was 52% (normal 30-90%) 2 hours was 15% (normal <60%) 3 hours was 14% (normal <30%) 4 hours was 12% (normal <10%) Impression: Normal gastric emptying pattern. The findings do not support the clinical diagnosis of gastroparesis. Note that this study was performed with only a 30 mL volume of Ensure rather than the standard 8 ounces. Fat content in 30 mL of Ensure Original is only 0.75 grams of fat. Signed by: Dr. Jacquelin Carter M.D. on 11/10/2018 3:44 PM
--- NOTE | 2018-11-10 18:25 | NUR ---
patient resting in bed, alert with no distress, family at bed side
--- NOTE | 2018-11-10 19:00 | NUR ---
RECEIVED REPORT FROM DAY NURSE. PATIENT IS RESTING COMFORTABLY IN BED. BED IS IN LOWEST POSITION AND CALL MCCRARY IS WITHIN REACH.
[2018-11-11] VITALS (7 sets, daily range): BP systolic 112–125; BP diastolic 52–60
[2018-11-11 05:58] LABS: BASOPHILS % 0.7 % (0.0-1.0); EOSINOPHILS # (AUTO) 0.7 (0.0-0.4); HEMATOCRIT 32.4 % (34.2-44.1); HEMOGLOBIN 10.2 g/dL (12.0-16.0); LYMPHOCYTES # (AUTO) 1.9 (1.0-3.2); LYMPHOCYTES % 33.5 % (18.0-39.1); MEAN CORPUSCULAR HEMOGLOBIN 25.6 pg (28-32); MEAN CORPUSCULAR HGB CONC 31.5 g/dL (31-35); MEAN CORPUSCULAR VOLUME 81.2 fL (81-99); MONOCYTES # (AUTO) 0.6 (0.2-0.8); MONOCYTES % 11.1 % (4.4-11.3); NEUTROPHILS # (AUTO) 2.3 (2.1-6.9); NEUTROPHILS % 41.5 % (38.7-80.0); PLATELET COUNT 342 x10e3/uL (140-360); RED BLOOD COUNT 3.99 x10e6/uL (3.6-5.1); RED CELL DISTRIBUTION WIDTH 17.8 % (11.7-14.4)
[2018-11-11 06:15] LABS: ANION GAP 14.2 mmol/L (8-16); BLOOD UREA NITROGEN 5 mg/dL (7-26); BUN/CREATININE RATIO 8 (6-25); CALCIUM 9.9 mg/dL (8.4-10.2); CARBON DIOXIDE 18 mmol/L (22-29); CHLORIDE 102 mmol/L (98-107); CREATININE, SERUM 0.63 mg/dL (0.57-1.11); EST GLOMERULAR FILTRATION RATE > 60 ML/MIN (60-); GLUCOSE 155 mg/dL (74-118); MAGNESIUM 1.3 MG/DL (1.3-2.1); POTASSIUM 4.2 mmol/L (3.5-5.1); SODIUM 130 mmol/L (136-145)
--- NOTE | 2018-11-11 06:49 | NUR ---
REPORT GIVEN TO DAY NURSE. PATIENT IS RESTING COMFORTABLY IN BED. BED IS IN LOWEST POSITION AND CALL MCCRARY IS WITHIN REACH. NO COMPLAINTS OF PAIN OR DISCOMFORT NOTED.
--- NOTE | 2018-11-11 07:18 | NUR ---
patient resting in bed, denies any pain, no distress noted, family at bed side
[2018-11-11] MEDS: INSULIN LISPRO 100 UNIT/1 ML 3ML VIAL SQ SCH ×4 (08:01→22:49)
[2018-11-11] MEDS: METOPROLOL TARTRATE 50 MG TAB PO SCH ×2 (08:01→18:19)
[2018-11-11] MEDS ORDERED: MAGNESIUM SULFATE 2GM/50ML 50 ML IV ONE (11:30)
[2018-11-11] MEDS ORDERED: IOPAMIDOL 370 MG/ML 200 ML INFUS..BTL INJ ONE (17:05)
[2018-11-11] MEDS ORDERED: SODIUM CHLORIDE 0.9% 50ML 50 ML ONE (17:05)
--- NOTE | 2018-11-11 19:00 | NUR ---
received report from day nurse. patient is resting in bed. bed is in lowest position and call aburto is within reach. will continue to monitor patient.
[2018-11-12] VITALS (8 sets, daily range): BP systolic 119–140; BP diastolic 57–65
--- NOTE | 2018-11-12 06:49 | NUR ---
report given to day nurse. patient is resting comfortably in bed. bed is in lowest position and call aburto is within reach.
[2018-11-12] MEDS: INSULIN LISPRO 100 UNIT/1 ML 3ML VIAL SQ SCH ×4 (08:10→22:49)
[2018-11-12] MEDS: METOPROLOL TARTRATE 50 MG TAB PO SCH ×2 (08:12→16:54)
--- NOTE | 2018-11-12 08:32 | Diagnostic Imaging Report ---
EXAM: CT Chest, abdomen, and pelvis with contrast INDICATION: Ovarian mass, multifocal pneumonitis. COMPARISON: None TECHNIQUE: Chest, abdomen, and pelvis was scanned utilizing a multidetector helical scanner from the lung apex through the upper thighs after administration of IV contrast. Coronal and sagittal reformations were obtained. Routine protocol was performed. IV CONTRAST: 100 mL of Isovue 370 RADIATION DOSE: Total DLP: 756.5 mGy*cm Dose modulation, iterative reconstruction, and/or weight based adjustment of the mA/kV was utilized to reduce the radiation dose to as low as reasonably achievable. COMPLICATIONS: None COMPARISON: None available. FINDINGS: LINES AND TUBES: None LUNGS AND AIRWAYS: The central airways are patent. Incidental azygos lobe is noted. There are multifocal patchy groundglass opacities versus mosaic attenuation. Diffuse opacities and motion artifact limits evaluation for lung nodule. There is mild biapical pleural-parenchymal opacity. There is patchy dependent atelectasis in the lower lobes. There is a 3 mm solid pulmonary nodule in the right upper lobe on series 4, image 25. There is a 5 mm subpleural nodule in the lingula on image 59. An apparent nodular opacity in the right lower lobe measuring 6 mm on image 33 may represent pulmonary nodule or volume averaging from adjacent vessel. PLEURA: The pleural spaces are clear. HEART AND MEDIASTINUM: There is a 0.6 cm hypodense nodule within the left thyroid gland. No significant mediastinal, hilar or axillary lymphadenopathy is seen. No cardiomegaly or pericardial effusion. Scattered coronary and thoracic aortic atherosclerotic calcifications. HEPATOBILIARY: There is diffuse fatty liver. There is a 2.2 cm hypodense area adjacent to the falciform ligament. No biliary ductal dilatation. SPLEEN: No splenomegaly. PANCREAS: No focal masses or ductal dilatation. ADRENALS: There is a 1.7 cm left adrenal nodule (56 HU; series 2, image 56) and a 1 cm right adrenal nodule 64 HU; image 57). KIDNEYS/URETERS: No hydronephrosis, stones, or solid mass lesions. PELVIC ORGANS/BLADDER: Somewhat limited evaluation secondary to streak artifact from left hip hardware. There are bilateral complex mixed solid cystic mass within the pelvis. The left component of the mass measures up to 5.5 x 9.1 x 7.1 cm (coronal image 37) has solid and cystic components. The right mass measures up to 5.1 x 7.1 x 10.2 cm, and superiorly contains macroscopic fat end a punctate focus of calcification (series 2, image 91). PERITONEUM / RETROPERITONEUM: No free air or fluid. LYMPH NODES: No lymphadenopathy. VESSELS: Infrarenal IVC filter is noted with filter struts penetrating through the IVC wall. There are extensive atherosclerotic calcifications in the aorta and branch vessels. At the diaphragmatic earline, there is focal severe narrowing at the origin of celiac artery with poststenotic dilatation as seen on axial series 2, image 60 and sagittal image 76. GI TRACT: No distention or wall thickening. BONES AND SOFT TISSUES: No acute osseous abnormality. Partially seen left total hip arthroplasty. IMPRESSION: Bilateral adnexal masses. The right adnexal mass is cystic and contains fat as well as a punctate calcification, suspicious for dermoid. The left adnexal mass is indeterminate and contains solid and cystic components, with malignancy on the differential. Pelvic MRI is suggested for further evaluation. Comparison to any prior outside imaging, if available, would be helpful. Bilateral indeterminate adrenal nodules. Adrenal protocol CT or MRI is suggested for further evaluation. A hypodense area in the liver adjacent to the falciform ligament could represent focal fatty infiltration, although if clinically indicated MRI may be considered for further evaluation. Focal severe narrowing at the origin of the celiac artery at the diaphragmatic earline with poststenotic dilatation. Findings could represent median arcuate ligament syndrome in the appropriate clinical context. Multifocal patchy groundglass opacities/mosaic attenuation. Findings could represent atypical infection, small airways disease, or microvascular occlusion. Bilateral indeterminate solid pulmonary nodules. Followup chest CT is suggested in 3 months to assess for stability. Hypodense left thyroid nodule for which a thyroid ultrasound may be considered for further evaluation. Signed by: Dr. Jose Wiggins MD on 11/12/2018 8:29 AM
--- NOTE | 2018-11-12 16:06 | NUR ---
GOT A DENIAL FROM [facility], SPOKE WITH FAMILY GOT SIGNED CHOICE FOR [facility] AND FAXED CLINICALS. WAITING ON AUTH
--- NOTE | 2018-11-12 19:14 | NUR ---
Report received and walking rounds complete. Pt resting in bed and in no apparent distress. Safety measures ensured and family at bedside.
--- NOTE | 2018-11-12 19:41 | Consultation ---
DATE OF CONSULTATION: 11/12/2018 GI Consultation REASON FOR CONSULTATION: Nausea and vomiting. HISTORY OF PRESENT ILLNESS: Ms. Coelho is a pleasant 68-year-old woman, who was recently seen at [facility] and had upper endoscopy there. She comes in with multiple problems including intractable nausea and vomiting. Apparently, she had EGD previously. She has had a gastric emptying study, which was unremarkable. She had multiple electrolyte abnormalities including hyponatremia. She has had elevated LFTs, specifically the AST. Currently, she still has quite a low appetite, but is eating some, not having any problems with nausea or vomiting and having regular bowel movement. Otherwise, imaging has been significant for adnexal masses, adrenal nodule, hyperdense area adjacent to the liver, possible focal fatty infiltration, focal severe narrowing at the origin of celiac artery concerning for possible median arcuate ligament syndrome and Surgery has been consulted. Ground-glass opacities in the lung, pulmonary nodules, and hyperdense left thyroid nodule. PAST MEDICAL HISTORY: Adnexal masses, nausea and vomiting, mild gastritis on EGD, hypertension, diabetes, renal mass, hypothyroid. PAST SURGICAL HISTORY: Includes hip surgery, recent EGD. FAMILY HISTORY: Hypertension. SOCIAL HISTORY: No alcohol, tobacco, or illicit substance. MEDICATIONS: Reviewed. Please see MAR medication reconciliation form. REVIEW OF SYSTEMS: Positive for she came in, otherwise unremarkable except for that mentioned in HPI. PHYSICAL EXAMINATION: GENERAL: She is calm, alert, in no acute distress, lying in ed. HEENT: Pupils are equal, round, and reactive to light. NECK: Supple. LUNGS: Clear. CARDIOVASCULAR: S1 and S2. ABDOMEN: Soft, nontender, and nondistended. Normal bowel sounds. EXTREMITIES: No clubbing, cyanosis. PSYCHIATRIC: Calm. NEUROLOGIC: Alert and oriented. HEMATOLOGIC/ONCOLOGIC: No bruising or adenopathy. The electronic health records were reviewed for laboratory and radiologic studies as well as history. ASSESSMENT: 1. . 2. Nausea and vomiting, improved. 3. 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 4. Bilateral solid pulmonary nodules and thyroid nodule. PLAN: At current time, from GI perspective, we will continue her on bowel regimen and we will provide supportive care as needed. We will follow up surgical recommendations. Thank you very much for asking me to see Ms. Coelho. Any questions or concerns, please do not hesitate to contact me. Juanita Cash MD RLS/CATAL /[phone]
--- NOTE | 2018-11-12 21:40 | NUR ---
Spoke to Giancarlo in radiology and pt to have nuclear medicine test tomorrow since nuclear medicine team will here tomorrow for another pt as well. Giancarlo advised that pt should be NPO after midnight and to have no opioid meds. Reuben Chambers the loading unit operator seating translate to inform pt of test being done tomorrow and to have no pain meds and nothing by mouth after midnight. Pt verbalized understanding.
[2018-11-13] VITALS (7 sets, daily range): BP systolic 119–157; BP diastolic 56–71
--- NOTE | 2018-11-13 07:28 | NUR ---
Report given and walking rounds complete.
[2018-11-13] MEDS: INSULIN LISPRO 100 UNIT/1 ML 3ML VIAL SQ SCH ×4 (07:30→21:18)
[2018-11-13] MEDS: METOPROLOL TARTRATE 50 MG TAB PO SCH ×2 (09:00→17:29)
[2018-11-13] MEDS ORDERED: MORPHINE SULFATE INJ 4 MG/ML INJ 1ML IV ONE (13:30)
--- NOTE | 2018-11-13 14:16 | Diagnostic Imaging Report ---
EXAM: HIDA Scan with Morphine Challenge INDICATION: Intractable vomiting Report: Following the administration of 6.5 mCi of Tc-99m mebrofenin, dynamic images of the abdomen in the anterior projection were obtained through 60 minutes. Additional static image was obtained at 85 minutes. Morphine sulfate 3 mg was administered intravenously and additional images were obtained through 30 minutes. Perfusion of the liver is normal. Extraction of tracer from the blood pool by the liver parenchyma is normal. Tracer appears promptly with in the biliary tract. Tracer is seen in the small bowel by1 5 minutes post injection of the tracer. The gallbladder does not fill during the initial 60 minutes of imaging of by 85 minutes but does fill promptly following administration of morphine. Impression: Filling of the gallbladder excludes acute cystic duct obstruction/acute cholecystitis. Signed by: Dr. Jacquelin Carter M.D. on 11/13/2018 2:13 PM
--- NOTE | 2018-11-13 14:26 | NUR ---
patient back from [facility] and Dr Patel paged to give hida results.
[2018-11-13] MEDS: ONDANSETRON HCL INJ 2MG/ML 2ML 2 MG/ML VIAL IV PRN (14:41)
--- NOTE | 2018-11-13 17:57 | Consultation ---
DATE OF CONSULTATION: 11/13/2018 CHIEF COMPLAINT: Intractable vomiting. HISTORY OF PRESENT ILLNESS: The patient is a 68-year-old female with a 3-week history of intractable vomiting after liquid and solid food intake. She denies hematemesis. No particular food items association. No fever, chills, or diarrhea. The patient has extensive workup including nuclear medicine gastric emptying scan, which was read as normal. EGD was unremarkable. CT scan suggestive of median arcuate ligament syndrome with compression of the celiac axis. PAST MEDICAL HISTORY: Positive for hypertension, diabetes, and hypothyroidism. PAST SURGICAL HISTORY: Positive for left hip surgery in July of last year after a fall. ALLERGIES: THE PATIENT HAS NO DRUG ALLERGIES. SOCIAL HISTORY: No history of smoking or alcohol abuse. REVIEW OF SYSTEMS: No chest pain or shortness of breath. PHYSICAL EXAMINATION: VITAL SIGNS: Stable and afebrile. She is awake, alert, in no apparent distress. HEENT: Sclerae nonicteric. NECK: Supple. LUNGS: Clear. HEART: Regular rate and rhythm. ABDOMEN: Soft with some guarding in the right upper quadrant without rebound. EXTREMITIES: Without cyanosis or edema. LABORATORY DATA: White cell count is 5, hemoglobin of 10, and platelet count of 342. Creatinine 0.6. Liver function tests within normal limits. Lipase 26. CT of the abdomen as mentioned showing severe narrowing at the origin of the celiac artery suggestive of median arcuate ligament syndrome. ASSESSMENT: Intractable vomiting in a patient who is diabetic with normal gastric emptying study. PLAN: HIDA scan to rule out biliary dyskinesia. If that is negative, workup for celiac artery syndrome with CT angiogram and ultrasound duplex study of the celiac axis. Miguel Patel MD DNBianca/MODL /[id number]
--- NOTE | 2018-11-13 19:14 | NUR ---
Report received and walking rounds complete. Pt resting in bed and in no apparent distress. All safety measures ensured, bed alarm on, and pt call aburto near.
[2018-11-14] VITALS (8 sets, daily range): BP systolic 99–144; BP diastolic 46–94
--- NOTE | 2018-11-14 05:09 | NUR ---
Pt temp. 100. 9. Pt asymptomatic and no complaints of feeling hot or sweating. Pt temperature in room adjusted and blankets roomed. Pt to receive bed bath and will recheck temperature.
--- NOTE | 2018-11-14 07:12 | NUR ---
Pt repeat temp 101.8. Pt asymptomatic but pt body feels hot and room temperature is hot. Contacted Dr. Ellison for orders. gave orders for Tylenol 650 mg q 6h prn. also asked about HIDA scan and read results to . MD ordered for CBC, CMP, Lipase, UA, Urine culture, chest x ray, and blood cultures x 2. Orders also relied to day shift RN.
[2018-11-14] MEDS ORDERED: ACETAMINOPHEN 325 MG TAB PO PRN (07:15)
[2018-11-14] MEDS: INSULIN LISPRO 100 UNIT/1 ML 3ML VIAL SQ SCH ×4 (07:30→21:26)
--- NOTE | 2018-11-14 07:43 | NUR ---
Tylenol given to pt. Pt seemed to be lethargic/slow to respond. ELOINA Coy assisted in translating with pt and pt started to become a bit more responsive. Pt is now alert and communicating and sitting up in bed.
--- NOTE | 2018-11-14 08:06 | NUR ---
Patient off unit to x-ray. Patient voiced in Setswana she feels tired, no other complaints voiced at this time.
[2018-11-14 08:09] LABS: BASOPHILS % 0.8 % (0.0-1.0); EOSINOPHILS # (AUTO) 0.1 (0.0-0.4); EOSINOPHILS % 3.6 % (0.0-6.0); HEMOGLOBIN 12.4 g/dL (12.0-16.0); LYMPHOCYTES # (AUTO) 0.8 (1.0-3.2); MEAN CORPUSCULAR HEMOGLOBIN 25.5 pg (28-32); MEAN CORPUSCULAR VOLUME 82.3 fL (81-99); MONOCYTES # (AUTO) 0.3 (0.2-0.8); MONOCYTES % 7.9 % (4.4-11.3); NEUTROPHILS # (AUTO) 2.4 (2.1-6.9); NEUTROPHILS % 64.4 % (38.7-80.0); PLATELET COUNT 289 x10e3/uL (140-360); RED BLOOD COUNT 4.86 x10e6/uL (3.6-5.1); RED CELL DISTRIBUTION WIDTH 18.2 % (11.7-14.4)
[2018-11-14 08:36] LABS: ALANINE AMINOTRANSFERASE 14 IU/L (0-55); ALBUMIN 2.5 g/dL (3.5-5.0); ALBUMIN/GLOBULIN RATIO 0.7 (0.8-2.0); ALKALINE PHOSPHATASE 100 IU/L (40-150); ANION GAP 16.5 mmol/L (8-16); BLOOD UREA NITROGEN 6 mg/dL (7-26); BUN/CREATININE RATIO 8 (6-25); CALCIUM 10.4 mg/dL (8.4-10.2); CARBON DIOXIDE 18 mmol/L (22-29); CHLORIDE 100 mmol/L (98-107); CREATININE, SERUM 0.73 mg/dL (0.57-1.11); EST GLOMERULAR FILTRATION RATE > 60 ML/MIN (60-); GLUCOSE 162 mg/dL (74-118); LIPASE 23 U/L (8-78); POTASSIUM 4.5 mmol/L (3.5-5.1); SODIUM 130 mmol/L (136-145)
[2018-11-14] MEDS: METOPROLOL TARTRATE 50 MG TAB PO SCH (09:46)
--- NOTE | 2018-11-14 10:08 | Diagnostic Imaging Report ---
EXAMINATION: CHEST 2 VIEWS INDICATION: Fever, altered mental status. COMPARISON: CT chest 11/11/2018. FINDINGS: The patient's chin partially obscures visualization of the lung apices. TUBES and LINES: None. LUNGS: Lungs are well inflated. There is no evidence of pneumonia or pulmonary edema. PLEURA: No pleural effusion or pneumothorax. HEART AND MEDIASTINUM: The cardiomediastinal silhouette is unremarkable. BONES AND SOFT TISSUES: No acute osseous lesion. Soft tissues are unremarkable. UPPER ABDOMEN: No free air under the diaphragm. IMPRESSION: No acute radiographic abnormality. Signed by: Dr. Jose Wiggins MD on 11/14/2018 10:04 AM
[2018-11-14 10:40] LABS: CLARITY,URINE CLOUDY (CLEAR); COLOR,URINE YELLOW (YELLOW)
[2018-11-14 10:41] LABS: BACTERIA,URINE FEW /HPF; BILIRUBIN,URINE 1+ (NEGATIVE); KETONES,URINE 1+ (NEGATIVE); LEUKOCYTE ESTERASE ,URINE 1+ (NEGATIVE); NITRITE,URINE NEGATIVE (NEGATIVE); PROTEIN,URINE DIPSTICK NEGATIVE (NEGATIVE); RBC,URINE 0-5 /HPF (0-5); URINE UROBILINOGEN 0.2 mg/dL (0.2 - 1); WBC,URINE (MAN) 0-5 /HPF (0-5)
[2018-11-14 10:42] LABS: AMORPHOUS SEDIMENT,URINE MODERATE (FEW)
--- NOTE | 2018-11-14 10:55 | NUR ---
Patient is awake and answering questions appropriately. Will continue to monitor.
--- NOTE | 2018-11-14 12:30 | NUR ---
Patient is awake and able to answer questions appropriately. She drank all the tea and had a few bites of jello but stated, "No adam dickey"(I'm not hungry) Call aburto within reach.
--- NOTE | 2018-11-14 13:34 | NUR ---
Dr. Patel making rounds, orders per EMAR.
--- NOTE | 2018-11-14 14:10 | NUR ---
Dr. Ellison making rounds at the bedside. Patient is now more lethargic and unable to answer simply questions. Received order to transfer to [facility]. art therapy certified supervisor, Jennifer and charge nurse, Carmen notified. Awaiting bed assignment. New orders for ID, MAIL SORTER AND DELIVERY called. Patient's spouse Memo Coelho called on his cellphone to update on patient condition.
--- NOTE | 2018-11-14 14:16 | NUR ---
Charge nurse, Tia at the bedside starting IV.
[2018-11-14] MEDS: LACTATED RINGER'S 1,000 ML IV SCH ×2 (14:30→22:30)
--- NOTE | 2018-11-14 15:25 | NUR ---
Dr. Nice at the bedside making rounds. Verbal report given to
[2018-11-14] MEDS: CEFEPIME 1GM/NS 0.9% 50 ML 50 ML IV SCH (15:45)
--- NOTE | 2018-11-14 16:13 | NUR ---
Order clarification obtained from Dr. Patel on MRA and U/S, testing can be done tomorrow.
--- NOTE | 2018-11-14 16:15 | NUR ---
Visit made by the Spiritual Care Department Pastoral Visitor, Yousuf Restrepo. PV provided pastoral presence, hospitality, and supportive listening. Pastoral Visitor informed pt/family of the scope of [facility] and availability. CAIO ROACH Delivery Driver Assistant Spiritual Care Department O: [phone] Pager: [phone] ([phone] number calling from)
[2018-11-14] MEDS: VANCOMYCIN 1GM/NS 250 ML 250 ML IV SCH (16:28)
[2018-11-14] MEDS ORDERED: ACETAMINOPHEN 325 MG SUPP PR PRN (17:00)
[2018-11-14] MEDS ORDERED: ACETAMINOPHEN 650 MG SUPP PR PRN (17:15)
[2018-11-14 17:33] LABS: AMYLASE 12 U/L (25-125); LIPASE 31 U/L (8-78)
[2018-11-14] MEDS: METOPROLOL TARTRATE INJ 1 MG/ML VIAL IV SCH (18:15)
--- NOTE | 2018-11-14 18:25 | NUR ---
Report given to IMCU nurse. Patient transferred via bed to room 187. Spouse at side with patients bag of belongings.
[2018-11-14 19:11] LABS: HIV 1&2 AB SCREEN NON-REACTIVE (NONREACTIVE)
[2018-11-14] MEDS: ONDANSETRON HCL INJ 2MG/ML 2ML 2 MG/ML VIAL IV PRN (20:36)
[2018-11-14] MEDS: METRONIDAZOLE 500MG/NS 100ML 100 ML IV SCH (20:37)
[2018-11-14] MEDS: HEPARIN SOD (PORCINE) 5,000 UNIT/ML VIAL SC SCH (20:38)
[2018-11-15] VITALS (8 sets, daily range): BP systolic 102–145; BP diastolic 53–69
[2018-11-15] MEDS: LACTATED RINGER'S 1,000 ML IV SCH (01:40)
--- NOTE | 2018-11-15 01:41 | NUR ---
patient zp=[id number], metoprolol iv held.
[2018-11-15] MEDS: CEFEPIME 1GM/NS 0.9% 50 ML 50 ML IV SCH ×2 (03:31→15:02)
[2018-11-15] MEDS: VANCOMYCIN 1GM/NS 250 ML 250 ML IV SCH ×2 (04:16→16:19)
--- NOTE | 2018-11-15 04:45 | NUR ---
11/14/18@ 1900: Received patient from the day nurse, patient is alert, however, patient is confused. introduced self to patient and made aware of the plan of care for the night, safety and fall precautions maintained as per hospital protocol: bed in lowest position and locked, needed items beside bed and call aburto placed within patient reach, patient encouraged to call nurses for any assisstance needed, pt received due medications. 2000: Patient rounded and stable. 2200: Patient rounded and stable.11/15/18: 0200:Patient rounded and stable. 0200:Patient rounded and stable. 0400: Patient rounded and stable.
[2018-11-15 05:29] LABS: BASOPHILS % 0.9 % (0.0-1.0); EOSINOPHILS # (AUTO) 0.4 (0.0-0.4); EOSINOPHILS % 9.2 % (0.0-6.0); HEMATOCRIT 33.2 % (34.2-44.1); HEMOGLOBIN 10.4 g/dL (12.0-16.0); LYMPHOCYTES % 43.6 % (18.0-39.1); MEAN CORPUSCULAR HEMOGLOBIN 25.9 pg (28-32); MEAN CORPUSCULAR HGB CONC 31.3 g/dL (31-35); MEAN CORPUSCULAR VOLUME 82.6 fL (81-99); MONOCYTES # (AUTO) 0.7 (0.2-0.8); MONOCYTES % 14.5 % (4.4-11.3); NEUTROPHILS # (AUTO) 1.4 (2.1-6.9); NEUTROPHILS % 31.6 % (38.7-80.0); PLATELET COUNT 262 x10e3/uL (140-360); RED BLOOD COUNT 4.02 x10e6/uL (3.6-5.1)
[2018-11-15 05:58] LABS: BLOOD UREA NITROGEN 12 mg/dL (7-26); BUN/CREATININE RATIO 13 (6-25); CALCIUM 9.5 mg/dL (8.4-10.2); CARBON DIOXIDE 19 mmol/L (22-29); CHLORIDE 106 mmol/L (98-107); CREATININE, SERUM 0.89 mg/dL (0.57-1.11); EST GLOMERULAR FILTRATION RATE > 60 ML/MIN (60-); GLUCOSE 142 mg/dL (74-118); SODIUM 133 mmol/L (136-145)
[2018-11-15] MEDS: METOPROLOL TARTRATE INJ 1 MG/ML VIAL IV SCH ×2 (06:00)
[2018-11-15] MEDS: METRONIDAZOLE 500MG/NS 100ML 100 ML IV SCH ×3 (06:19→22:40)
--- NOTE | 2018-11-15 07:16 | NUR ---
patient endorsed to next shift for continuity of care.
[2018-11-15] MEDS: INSULIN LISPRO 100 UNIT/1 ML 3ML VIAL SQ SCH ×4 (08:30→21:00)
[2018-11-15] MEDS: HEPARIN SOD (PORCINE) 5,000 UNIT/ML VIAL SC SCH ×2 (09:03→21:00)
--- NOTE | 2018-11-15 09:14 | NUR ---
EDUCATED ABOUT IMM, SIGNED, FILED IN CHART, WITH COPY LEFT WITH FAMILY AT BEDSIDE.
--- NOTE | 2018-11-15 09:22 | Consultation ---
DATE OF CONSULTATION: 11/14/2018 Consultation Note REASON FOR CONSULTATION: Fever. Thank you so much for the opportunity to see this patient. HISTORY OF PRESENT ILLNESS: This patient, who is a 68-year-old Mexican female. The patient was coming with nausea and vomiting to [facility], admitted on 11/08/2018. The patient apparently has been sick for the last few months. The patient apparently has been having some abdominal discomfort and she was at [place], where she had extensive workup ovarian masses. The etiology was unclear. The patient was supposed to follow up with [facility] oncologist, but never did, comes back with nausea and vomiting where she was admitted. Today, the patient became febrile with lethargy. I am asked to see her. There is no family at the bedside. The patient had nausea and vomiting. She had an EGD and she had a gastric emptying study, all came back negative. Multiple electrolyte abnormalities. The patient was in [place], admission above for about 10 days where she had that workup and was discharged. She is coming now with nausea and vomiting. She was seen by GI. 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 The patient is being admitted and as mentioned above, Surgery is seeing the patient, but today, she had fever, chills, and lethargy, so I am asked to see her. The patient cannot provide any further information. Nurses told me that yesterday she was walking. LABORATORY DATA: Reviewed. Chest x-ray was done on , came back negative. She had a HIDA scan, which was negative for cystitis. Her blood cultures are still pending. From 11/08, blood pressure was negative. Her white count is 9.14 on admission and today, it is 3.65, and hemoglobin of 12.2. Sodium 130, potassium 4.5, and creatinine 0.73. Liver enzymes within normal limits. PHYSICAL EXAMINATION: VITAL SIGNS: T-max had been at 101.4. GENERAL: She is currently lethargic. HEENT: Normocephalic and atraumatic. NECK: Supple. CHEST: Clear. HEART: S1, S2. No S3, S4, or murmur. ABDOMEN: Soft. Bowel sounds are present. No tenderness. EXTREMITIES: No edema. IMPRESSION: 1. Fever, etiology unclear. Concerned about sepsis infection. blood cultures. We will put the patient on vancomycin, cefepime, and Flagyl since being in the hospital. We will also obtain HIV bilateral adrenal mass, cystic containing fat, suspicious for a dermoid containing solid cystic component, malignancy in differential. MRI was recommended. 2. Multifocal patchy ground-glass opacities continuation, atypical infection, small airway disease. From infectious disease point of view, I will recommend as mentioned above, obtaining the fever, obtaining blood cultures and putting on vancomycin, cefepime, and Flagyl. Abnormal finding on CAT scan. MRI done of the pelvis. Unfortunately, we do not have an [facility] Oncology at this hospital. We will check HIV. Obtain blood cultures for AFB, cryptococcal antigen, urine histoplasmosis, RPR. We will follow up. MD SONA Orellana/JOSSE /[id number]
--- NOTE | 2018-11-15 13:38 | Progress Note ---
DATE: 11/15/2018 GI Progress Report. SUBJECTIVE: The patient reports nausea, but without any vomiting. She was able to tolerate oat meal breakfast. No abdominal pain. She is having regular bowel movements. Stool is usually loose. REVIEW OF SYSTEMS: GENERAL: No fever or chills. CVS: No chest pain or palpitations. RESPIRATORY: No cough or expectoration. MEDICATIONS: Reviewed as per NOV. She is getting intravenous metronidazole as well as vancomycin along with cefepime. PHYSICAL EXAMINATION: VITAL SIGNS: Temperature 97.8, pulse 91, respirations 24, blood pressure 123/62, oxygen saturation 92% on room air. GENERAL: Not in any acute distress. HEENT: Oral mucosa is moist. Anicteric sclerae. CVS: S1 and S2 regular. LUNGS: Bilaterally grossly clear. ABDOMEN: Soft, nondistended, nontender. No palpable mass or hernia. Positive bowel sounds. EXTREMITIES: Warm. No leg edema. LABORATORY DATA: HIDA scan is negative. WBC 4.56, hemoglobin 10.4, hematocrit 33.2, platelet count 262. Electrolytes normal except sodium is mildly low to 133. IMPRESSION: Nausea without vomiting. HIDA scan is negative. Laboratory data is unrevealing. PLAN: The patient is likely having nausea secondary to possible underlying medications. I do not suspect any structural GI causes contributing to upper GI symptoms. Recommend adding PPI daily. Ki Adamson MD SA/JOSSE /[id number]
[2018-11-15] MEDS ORDERED: SODIUM CHLORIDE 0.9% 250ML 250 ML ONE (14:59)
[2018-11-15] MEDS: METOPROLOL TARTRATE 50 MG TAB PO SCH (16:19)
--- NOTE | 2018-11-15 16:21 | NUR ---
ORDERS REC'D TO TRANSFER PT TO [facility] FOR HIGHER LEVEL OF CARE ([facility]) IN THE SETTING OF FUO AND BILATERAL OVARIAN MASSES AND CHRONIC N/V PT EXTREMELY LETHEARGIC CALLED AND SPOKE WITH PT'S LAURA MARTINEZ [phone]; HE IS AGREEABLE WITH TRANSFER TELEPHONE CONSENTS TAKEN AND WITNESS BY NURSE CM CALLED [facility] [phone] SPOKE WITH YOSELYN FAXED FACE SHEET AND H+P TO [phone]\ CONFIRMATION REC'D INITIATED MOT AND PLACED IN PACKET AT DESK WITH PT'S NAME YOSELYN CHECKING TO MAKE SURE THEY HAVE [facility] SERVICE AVAILABLE AND WILL CALL BACK
--- NOTE | 2018-11-15 18:37 | NUR ---
SPOKE TO TRANSFER CENTER PATIENT DECLINED FOR TRANSFER. NOTIFIED
--- NOTE | 2018-11-15 19:01 | Diagnostic Imaging Report ---
EXAM: Transabdominal and Transvaginal Pelvic Ultrasound INDICATION: ^VAGINAL DISCHARGE, OVARIAN MASSES BILATERALLY COMPARISON: CT abdomen and pelvis 11/11/2018 TECHNIQUE: Grayscale transverse and sagittal transabdominal images were obtained of the pelvis. CLINICAL HISTORY: 68 year old G3, P3; last menstrual period: Postmenopausal. FINDINGS: Examination is limited as the bladder is not fully distended and secondary to overlying bowel gas. Uterus: Orientation: Normal Size: 8.1 x 3.2 x 4.1 cm, Normal Mass: None Cervix: Normal Endometrium: Thickness: 0.4 cm, Normal. Appearance: Homogeneous echotexture without focal thickening. Right ovary: Not visualized. Left ovary: Not visualized. Adnexa: 5.1 x 3.2 x 5.7 cm partly hyperechoic mass adjacent to the uterus with a shadowing component, likely representing the previously visualized dermoid. A 10.1 x 5.8 x 7.1 cm cystic structure with septations is also seen in the right adnexa. The left adnexal mass is not clearly visualized Cul-de-sac: No free fluid IMPRESSION: 1. Limited exam, as described above. 2. Partly cystic and shadowing right adnexal mass corresponding to the previously visualized right dermoid. 3. The previously described complex solid and cystic lesion in the left adnexa is not clearly visualized. As previously mentioned on recent CT, a contrast-enhanced pelvic MRI is recommended for further evaluation. Signed by: Dr. Robert Marion M.D. on 11/15/2018 6:58 PM
--- NOTE | 2018-11-15 19:27 | Diagnostic Imaging Report ---
EXAM: Complete Abdominal Ultrasound INDICATION: ^celiac artery compression r/o median arcuate ligament syndr COMPARISON: CT abdomen and pelvis 11/11/2018 TECHNIQUE: Transverse and longitudinal images of the upper abdomen were obtained. FINDINGS: Liver: Size: 12.0 cm in the right midclavicular line, normal Appearance: Increased echogenicity, smooth contour Mass: No focal masses Spleen: Size: 10.2 cm in length, normal Echogenicity: Normal Mass: No focal masses Gallbladder: Stones/Sludge: A small amount of sludge is noted in the gallbladder lumen. No echogenic stones. Wall: 0.2 cm Appearance: No wall thickening, pericholecystic fluid or hydrops. Sonographic Pimentel's Sign: Negative Bile Ducts: Intrahepatic Ducts: No dilatation Extrahepatic Ducts: Common bile duct measures 0.6 cm, no dilatation Pancreas: Visualized portions of the neck and proximal body are unremarkable. Kidneys: Length: Right 10.0 cm Left 9.4 cm Echogenicity: Normal Collecting System: No hydronephrosis Stone: None Cyst/Mass: None Vessels: Aorta: Proximal portion is obscured by overlying bowel gas. Midportion is unremarkable. Distal portion shows mild atherosclerotic disease. Inferior Vena Cava: Visualized portions are normal Main Portal Vein: 0.9 cm, normal size with hepatopetal flow. Normal arterial waveforms are noted in the celiac artery on color Doppler Free Fluid: No ascites or pleural effusion IMPRESSION: 1. Normal arterial waveforms seen in the celiac artery on color Doppler. 2. Hepatic steatosis. 3. Gallbladder sludge. No echogenic stones are identified. No evidence of cholecystitis. Signed by: Dr. Robert Marion M.D. on 11/15/2018 7:24 PM
--- NOTE | 2018-11-15 19:30 | NUR ---
Patient received hemodynamically stable, no complaints raised.
--- NOTE | 2018-11-15 20:20 | NUR ---
[facility]
--- NOTE | 2018-11-15 20:30 | NUR ---
Report given, patient had a BM, cleaned, dirty linens changed.
--- NOTE | 2018-11-15 21:08 | NUR ---
Patient transferred to room 297. hemodynamically stable
--- NOTE | 2018-11-15 21:51 | NUR ---
PT IS TRANSFERRED FROM [facility] AOX[facility] .RESPIRATIONS ARE EVEN AND UNLABORED SACRUM RED TELE [address] .ORIENTED THE PT TO THE ROOM .CALL MCCRARY WITH IN REACH CONTINUE TO MONITOR
[2018-11-16] VITALS (7 sets, daily range): BP systolic 121–131; BP diastolic 52–71
[2018-11-16] MEDS: CEFEPIME 1GM/NS 0.9% 50 ML 50 ML IV SCH ×2 (03:30→15:22)
[2018-11-16] MEDS: VANCOMYCIN 1GM/NS 250 ML 250 ML IV SCH (04:00)
--- NOTE | 2018-11-16 05:58 | NUR ---
VANCO TRO CAME 20.2 .NO ACUTE DISTRESS NOTED .CALL LIGHT WITH IN REACH .CONTINUE TO MONITOR
[2018-11-16] MEDS: METRONIDAZOLE 500MG/NS 100ML 100 ML IV SCH ×2 (06:12→14:00)
[2018-11-16 06:17] LABS: BASOPHILS % 0.7 % (0.0-1.0); EOSINOPHILS # (AUTO) 0.7 (0.0-0.4); EOSINOPHILS % 15.5 % (0.0-6.0); HEMOGLOBIN 9.8 g/dL (12.0-16.0); LYMPHOCYTES # (AUTO) 1.4 (1.0-3.2); LYMPHOCYTES % 30.1 % (18.0-39.1); MEAN CORPUSCULAR HEMOGLOBIN 25.6 pg (28-32); MEAN CORPUSCULAR HGB CONC 31.6 g/dL (31-35); MEAN CORPUSCULAR VOLUME 80.9 fL (81-99); MONOCYTES # (AUTO) 0.6 (0.2-0.8); MONOCYTES % 12.9 % (4.4-11.3); NEUTROPHILS # (AUTO) 1.9 (2.1-6.9); NEUTROPHILS % 40.6 % (38.7-80.0); PLATELET COUNT 253 x10e3/uL (140-360); RED BLOOD COUNT 3.83 x10e6/uL (3.6-5.1); RED CELL DISTRIBUTION WIDTH 17.7 % (11.7-14.4)
[2018-11-16 06:41] LABS: ANION GAP 12.6 mmol/L (8-16); BLOOD UREA NITROGEN 10 mg/dL (7-26); BUN/CREATININE RATIO 16 (6-25); CALCIUM 8.5 mg/dL (8.4-10.2); CARBON DIOXIDE 19 mmol/L (22-29); CHLORIDE 104 mmol/L (98-107); CREATININE, SERUM 0.62 mg/dL (0.57-1.11); EST GLOMERULAR FILTRATION RATE > 60 ML/MIN (60-); GLUCOSE 89 mg/dL (74-118); POTASSIUM 3.6 mmol/L (3.5-5.1); SODIUM 132 mmol/L (136-145)
--- NOTE | 2018-11-16 06:42 | NUR ---
VANCO TROUGH CAME 20.2 .NOT GIVEN VANCOMYCIN AND CALLED AND TERRY FOR RETURN CALL CALL LIGHT WITH IN REACH REPORT GIVEN ONCOMING NURSE
[2018-11-16] MEDS: INSULIN LISPRO 100 UNIT/1 ML 3ML VIAL SQ SCH ×3 (07:30→16:30)
--- NOTE | 2018-11-16 07:35 | NUR ---
PT UP IN BED NO DISTRESS NOTED DENIES [PAIN,
[2018-11-16] MEDS ORDERED: PANTOPRAZOLE 40 MG 10ML VIAL IV SCH (09:00)
[2018-11-16] MEDS: METOPROLOL TARTRATE 50 MG TAB PO SCH ×2 (09:05→17:00)
[2018-11-16] MEDS: HEPARIN SOD (PORCINE) 5,000 UNIT/ML VIAL SC SCH (09:06)
[2018-11-16] MEDS: ONDANSETRON HCL INJ 2MG/ML 2ML 2 MG/ML VIAL IV PRN (12:30)
[2018-11-16] MEDS ORDERED: SODIUM CHLORIDE 0.9% 100 ML 100 ML ONE (13:03)
[2018-11-16] MEDS ORDERED: GADOBENATE DIMEGLUMINE IV ONE (13:03)
[2018-11-16] MEDS ORDERED: DEXTROSE 5%/0.9% SOD CHL 1,000 ML IV SCH (14:15)
--- NOTE | 2018-11-16 14:32 | NUR ---
WOUND CARE CONSULTATION - INITIAL EVALUATION Patient admitted from home with Dehydration, Dizziness, Hypercalcemia, Nausea & Vomiting. HX: Ovarian Masses - Untreated. LABS: WBC4.59 HGB9.8 HCT31 NEUT%40.6 GLU89 -Wound Care Consulted for Suspected Stage I Pressure Ulcer of Sacrum. PATIENT VISIT: - Patient in bed, calm, Italian Speaking. Family member at bedside. - Nayan Score 15 - Alternating Pressure Air Mattress - Moderate PUP Active - Transferred from [facility] [place] [facility] [place], consulted today for possible stage 1 Pressure Ulcer. - Patient able to turn self with minimal assistance. - Complains of mild pain to right heel and buttocks area. - Diapered. - Bilateral buttocks open to air. Presents with non-blanchable purple areas, oval shaped with blanchable erythema to periwound. - Perirectal area reddened and inflamed due to overmoisture and episodes of incontinence. - Right heel - Blanchable Redness. Mild Tenderness. No Swelling. - Left Heel - intact. no redness, no tenderness, no swelling. IMPRESSION: 1. Right Gluteal -Pressure Ulcer - DTI 2. Left Gluteal -Pressure Ulcer - DTI 3. Bilateral Groin Areas & Gluteal Folds- Yeast/ Dermatologic Rash 4. Bilateral Heels - Blanchable Erythema. RECOMMENDATION 1. Right Gluteal - DTI : - Venelex and Cover with Allevyn Foam Sacrum Dressing Daily. 2. Left Gluteal -DTI: - Venelex and Cover with Allevyn Foam Sacrum Dressing Daily. 3. Bilateral Groin Areas & Gluteal Folds- Yeast/ Dermatologic Rash: - Nystatin Cream q12H and PRN Soiling. 4. Bilateral Heels - Allevyn Foam Heel Dressings every other day. 5. Bilateral Heel Protectors/ Offload Heels with Pillows while in bed. 6. Continue Alternating Pressure Air Mattress. 7. Turn and Reposition every 2 hours. 8. Shear Friction Precautions Thank you for consulting with Wound Care. Addendum: 11/16/18 at 1452 by Christopher Augustine RN Amended: Links added.
[2018-11-16] MEDS ORDERED: PROMETHAZINE 12.5MG/ NACL 0.9% 50 ML IV PRN (14:45)
[2018-11-16] MEDS ORDERED: LACTOBACILLUS ACIDOPHILUS CAPSULE PO SCH (17:00)
--- NOTE | 2018-11-16 17:02 | NUR ---
SPOKE WITH [facility] PT DENIED; NO BED AND DO NOT HAVE A UPFITTER ONC TO ACCEPT PT CM SPOKE WITH DR TOPETE ORDERS TO TRANSFER TO [facility] [address] [place]IS[place] TOPETE HAS SPOKE WITH DR GREEN AND HE AGREES TO ACCEPT PT CHOICE LETTER ON CHART; SIGNED BY PT'S FOR [facility] CM CALLED TRANSFER CENTER AND SPOKE WITH POPEYE FAHarshadED FACE SHEET [phone] FAX: [phone]
--- NOTE | 2018-11-16 17:24 | NUR ---
CM CHECKED PACKET FOR MOT NOT FOUND MOT FOUND IN THE BACK OF THE PT'S CHART [address] [facility] SUP AND NOTIFIED MOT IS BACK IN THE PT'S WHITE ENVELOPE
--- NOTE | 2018-11-16 17:58 | NUR ---
SPOKE WITH [facility]
--- NOTE | 2018-11-16 18:06 | NUR ---
Follow-up Note RD Recommendation for Physician: - Continue ADA diet as ordered - Rec Glucerna BID due to poor PO Plan of Care: RD following, monitoring for tolerance and adequacy, ONS rec Nutrition reason for involvement: Follow up Primary Diagnose(s): dehydration, dizziness, hypercalcemia PMH: DM Ht: 63in Wt: 163.19lb; 161lb BMI: 28.9kg/m2 IBW: 115lb RD Assessment: (11/16) Pt was discussed during AM rounds. Negative blood and urine culture. Per ELOINA Bennett, pt started vomiting this morning. Visited pt in the room. Pt reported poor appetite with nausea. Med was given for nausea. Pt didnt eat any of her lunch today. Pt reported nausea whenever she sees foods. LBM 11/16. Pt reported pain on the side of her cheeks when she chewed; notified ELOINA Bennett. No swallowing difficulty noted. Offered Glucerna shakes and pt was willing to try. Will continue to monitor and follow. (11/09) Chart reviewed. Labs and meds reviewed. Visited pt in the room. 68yo F, who was admitted for dehydration. Acute abdomen series indicated constipation. Visited pt in the room. Pt reported having nausea and vomiting for over a month. No abdominal pain noted. Unknown weight loss hx. No complain of chewing or swallowing difficulty reported. LBM 2 to 3 days ago. Pt only ate ~25% for lunch today. Appetite has been poor since admission. RD offered ONS but pt was not interested. Discussed available menu options with pt. Pt stated not wanting to eat because of nausea. Zofran has been ordered. Will continue to monitor and follow. Current Diet: ADA diet Malnutrition Evaluation (11/09) The patient does not meet criteria for a specified degree of malnutrition at this time. Will re-evaluate at follow-up as appropriate. Diet Education Needs Assessment: Diet education not indicated. Nutrition Care Level: low Signed: Morenita Cabezas, MS, RD, LD
--- NOTE | 2018-11-16 18:33 | NUR ---
PT UP IN BED ASLEEP NO S/S DISCOMFORT.
--- NOTE | 2018-11-16 18:51 | NUR ---
SPOKE WITH LAURA MARTINEZ REGARDING TRANSFER
--- NOTE | 2018-11-16 19:00 | NUR ---
Received patient asleep, daughter at the bedside, patient is transferring to [facility] 321 per report. Updated regarding the transfer, awaiting ambulance conduction. Will continue to monitor
--- NOTE | 2018-11-16 19:03 | NUR ---
PT AMANDEEP FOUND ON ANOTHER UNIT,IN PT ROOM
--- NOTE | 2018-11-16 19:03 | NUR ---
[id number]
--- NOTE | 2018-11-16 20:21 | NUR ---
Patient was transferred via ambulance conduction, MOT signed by Nsg Motorcycle Racer. Patient is stable
[2018-11-16] MEDS ORDERED: NYSTATIN 100,000 UNITS/GM CRM 30GM TUBE TOP SCH (21:00)
[2018-11-17] MEDS ORDERED: VANCOMYCIN 1GM/NS 250 ML 250 ML IV SCH (04:00)
[2018-11-17] MEDS ORDERED: BALSAM PERU/CASTOR OIL 60 GM OINT...G. TP SCH (09:00)
--- NOTE | 2018-11-19 13:42 | Diagnostic Imaging Report ---
CARDIOVASCULAR MRI & MRA OF THE ABDOMEN Comparison: Abdominal ultrasound 11/15/[address] abdomen and pelvis 11/11/2018 Indication: ^celiac artery compression Technique: Siemens Espree 1.5 T MRI scanner. * T2 Haste imaging for anatomic definition. * Contrast-enhanced volume sets acquired for three-dimensional MRA reconstructions after injection of gadolinium-chelate (MultiHance, 30 cc). * For more optimal morphologic evaluation, off-line advanced post-processing of the 3-D data was performed (using multiplanar, iqdayon-uszdbudke-geuazcfjle, and/or volume-rendered reconstructions). FINDINGS: ABDOMINAL AORTA: The abdominal aorta is normal in course, caliber and contour and associated with mildly scattered nonobstructing atherosclerotic changes. There is no evidence for acute aortic pathology. 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 It measures 0.7 cm on the right at the level of the origin of the celiac trunk compared to 0.3 cm. There is a typical hook appearance of the proximal celiac trunk with poststenotic dilatation, findings consistent with median arcuate ligament syndrome. The SMA and ANY are widely patent without extrinsic compression or atherosclerotic disease. Renal arteries: Single right and 2 left single renal arteries are normal in caliber and widely patent. No atherosclerotic changes or wall thickening identified. Infrarenal IVC filter remains in place. The abdominal aorta measures: 1.6 cm at the supramesenteric segment 1.6 cm at the mesenteric segment 1.5 cm at the renal segment 1.2 cm at the mid infrarenal segment 1.2 cm at the aortic bifurcation. LOWER CHEST: Unremarkable. ABDOMEN: Hepatic steatosis. Gallbladder sludge. Adrenal glands, spleen, and kidneys are unremarkable. Partially visualized mildly complex bilateral adnexal masses. BONES AND SOFT TISSUES: Unremarkable on limited evaluation. IMPRESSION: 1. 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 2. Widely patent SMA, ANY, and single right, and 2 left renal arteries. 3. Normal size of the abdominal aorta with associated mild scattered atherosclerotic changes. No acute pathology of the abdominal aorta. Signed by: Dr. Landy Nails M.D. on 11/19/2018 1:39 PM
--- NOTE | 2018-12-28 02:53 | Discharge Summary ---
PRIMARY CARE DOCTOR: Gordon Carcamo. FINAL DIAGNOSIS: Chronic nausea and vomiting of unclear etiology. SECONDARY DIAGNOSES: 1. Dehydration. 2. Bilateral ovarian mass. 3. Fever. 4. Chronic lung nodules. 5. Debility. CONSULTANTS: 1. Dr. Hammonds, Pulmonary. 2. Dr. Patel, Surgery. 3. Dr. Mckeon, GI. 4. Dr. Nice, Infectious Disease. PROCEDURES/STUDIES PERFORMED: 1. Abdominal MRI. 2. Abdominal ultrasound. 3. Pelvic ultrasound. 4. HIDA scan. 5. CT of the abdomen and pelvis. 6. Gastric emptying study. 7. Chest CT. 8. Abdominal CT. HISTORY: Per [facility] and P. HOSPITAL COURSE: This is a lady, who is well known to me from previous admission at [facility]. Despite all of the tests that we have done, we cannot figure out why she is having chronic nausea and vomiting. Therefore by process of examination, most likely this is due to her bilateral complex ovarian cyst/mass. I have spoken to [facility] and the decision was made to transfer her to [facility] for further evaluation. The patient underwent a course of empiric IV antibiotic per ID for her fever. Possibly this could be due to malignancy as well. The patient was hydrated. CONDITION ON DISCHARGE: For higher level care. DISCHARGE MEDICATIONS: Please see medication reconciliation form. ADDENDUM: The MRI of the abdomen shows severe stenosis of the proximal celiac trunk with associated post stenotic dilatation due to extrinsic compression by an asymmetric thickened earline of the diaphragm consistent with median arcuate ligament syndrome. MD JARAD Calix/JOSSE /[id number] cc: Gordon Carcamo
== END 2018-11-16 20:19 | disposition short-term general hospital (02) | DRG 760 ==
LOC: ER 09:26 → ERHOLD 14:34 → IMCU 15:05 → OBSVTOIN 11-15 12:17 → MED/SURG3 11-15 21:08
PROVIDERS: ADMIT Internal Medicine; ATTEND Internal Medicine
DX: N83.202 Unspecified ovarian cyst, left side (principal); G93.41 Metabolic encephalopathy; E05.91 Thyrotoxicosis, unspecified with thyrotoxic crisis or storm; E87.2 Acidosis; E87.1 Hypo-osmolality and hyponatremia; I77.4 Celiac artery compression syndrome; N83.201 Unspecified ovarian cyst, right side; E86.0 Dehydration; Z82.49 Family history of ischemic heart disease and other diseases of the circulatory system; R42 Dizziness and giddiness; E83.52 Hypercalcemia; I10 Essential (primary) hypertension; E11.9 Type 2 diabetes mellitus without complications; E78.5 Hyperlipidemia, unspecified; K21.9 Gastro-esophageal reflux disease without esophagitis; K59.00 Constipation, unspecified; E04.1 Nontoxic single thyroid nodule; R91.8 Other nonspecific abnormal finding of lung field; R50.9 Fever, unspecified; R53.81 Other malaise; Z79.4 Long term (current) use of insulin; R11.2 Nausea with vomiting, unspecified
CPT/HCPCS: 36415; 70450; 71046; 71260; 74022; 74177; 74185; 76856; 78227; 78264; 80048; 80053; 80076; 80202; 81001; 82150; 82378; 82550; 82553; 82948; 83605; 83690; 83735; 84443; 84484; 85025; 85610; 85730; 86592; 86850; 86900; 87040; 87086; 87385; 87390; 93005; 93306; 93975; 97139; 99284; A9537; A9541; G0378; G0433; G0435; J0692; J1644; J2270; J2405; J3370; J3475; J7030; J7042; J7050; J7121; Q9967

== ENCOUNTER → 2019-06-01 | Outpatient (CLI) | payer MEDICARE ==
[~2019-06-01] MED LIST: ATORVASTATIN CA20 MG PO; LEVEMIR; LOSARTAN POTASS50 MG PO; METFORMIN HCL1000 MG PO; METOPROLOL TAR100 MG PO; PREDNISONE10 MG PO
--- NOTE | 2019-06-01 13:17 | Diagnostic Imaging Report ---
EXAMINATION: HIP LEFT 2-3 VW (+/- PELVIS) INDICATION: Hip pain COMPARISON: Abdominal radiographs of 11/08/2018 FINDINGS: AP and frog-leg radiographs of the left hip were obtained. Status post left total hip replacement. No acute fracture or dislocation. Alignment appears anatomic. There is a rim of lucency along the superior and lateral aspect of the acetabular hardware component measuring up to 2 mm. This appears relatively unchanged compared to an abdominal radiograph of 11/08/2018. IMPRESSION: No acute osseous injury. Stable rim of lucency along the superolateral aspect of the acetabular hardware component. Signed by: Irwin Oseguera MD on 06/01/2019 1:14 PM
== END ==
LOC: RAD 12:02
PROVIDERS: ATTEND Family Medicine
DX: M25.552 Pain in left hip (principal); Z98.890 Other specified postprocedural states